=== PATIENT | female | born 1960 | race Caucasian/White ===

== ENCOUNTER 2020-07-23 06:46 | Outpatient (REF) | payer BC, SELFPAY ==
[2020-07-23 11:33] LABS: MANUAL DIFF FLAG NO
[2020-07-23 11:52] LABS: Basophils Percent Auto 0.8 % (0-2); Eosinophils Absolute Auto 0.3 X10*3/uL (0.0-0.4); Hematocrit 42.4 % (37-47); Hemoglobin 13.9 g/dl (12.0-16.0); Imm Gran Abs Auto 0.02 X10*3/uL (0.00-0.03); Imm Gran Pct Auto 0.4 % (0.0-0.4); Lymphocytes Absolute Auto 1.4 X10*3/uL (1.2-4.9); Lymphocytes Percent Auto 26.5 % (20-40); Mean Corpuscular HGB Conc 32.8 g/dl (31.0-35.0); Mean Corpuscular Hemoglobin 31.7 pg (27.0-33.0); Mean Corpuscular Volume 96.8 fL (80-98); Mean Platelet Volume 10.1 fL (9.4-12.3); Monocytes Absolute Auto 0.4 X10*3/uL (0.1-1.2); Monocytes Percent Auto 6.6 % (2-11); Neutrophils Absolute Auto 3.2 X10*3/uL (2.0-8.3); Neutrophils Percent Auto 59.7 % (45-73); Platelet Count 300 X10*3/uL (160-400); Red Blood Count 4.38 X10*6/uL (4.20-5.50); Red Cell Distribution Width 15.4 % (11.0-16.0); White Blood Count 5.3 X10*3/uL (4.8-10.8)
[2020-07-23 12:18] LABS: TSH reflex Free T4 3.82 uIU/mL (0.32-4.0)
[2020-07-23 12:21] LABS: Alanine Aminotransferase 11 U/L (0-31); Albumin Level 4.1 g/dL (3.5-5.0); Alkaline Phosphatase 80 U/L (39-117); Anion Gap 12 (12-20); Aspartate Amino Transferase 19 U/L (5-31); Bilirubin Direct 0.6 mg/dL (0.0-0.5); Bilirubin Total 1.8 mg/dL (0.0-1.0); Blood Urea Nitrogen 21 mg/dL (9-16); Calcium 9.7 mg/dL (8.4-10.2); Carbon Dioxide 31 mmol/L (22-29); Chloride 104 mmol/L (96-108); Estimated Glomerular Filt Rate 58; Glucose Random 89 mg/dL (60-115); Potassium 3.9 mmol/L (3.3-5.1); Sodium 143 mmol/L (135-145); Total Protein 7.1 g/dL (6.5-8.0)
[2020-07-23 12:36] LABS: Vitamin B12 < 146 pg/mL (200-900)
[2020-07-27 11:27] LABS: Vitamin D 25-OH, D2 <4 ng/mL; Vitamin D 25-OH, D3 13 ng/mL; Vitamin D 25-OH, Total 13 ng/mL (30-100)
== END 2020-07-23 06:47 | disposition home or self-care (01) ==
LOC: HO.HMGCLDS 06:46
PROVIDERS: PCP Internal Medicine; Visit Provider Internal Medicine
DX: G62.9 Polyneuropathy, unspecified (principal); I10 Essential (primary) hypertension; K21.9 Gastro-esophageal reflux disease without esophagitis; E03.8 Other specified hypothyroidism
CPT/HCPCS: 36415; 80048; 80076; 82306; 82607; 84443; 85025

== ENCOUNTER 2020-08-13 13:05 | Outpatient (REF) | payer BC, SELFPAY ==
--- NOTE | ~2020-08-13 | MM_ITS ---
EXAMINATION: MM DIAGNOSTIC DIGITAL BREAST TOMOSYNTHESIS, BILATERAL US DIAGNOSTIC ULTRASOUND BREAST, BILATERAL CLINICAL INFORMATION: 60-year-old with palpable fullness on clinical exam upper outer left breast. No prior breast imaging. Patient notes no palpable concern. No discharge. No known family history breast cancer. The lifetime risk of breast cancer based on the Tyrer-Cuzick Model is 8%. COMPARISON: None (current study represents initial baseline exam). TECHNIQUE: Digital breast tomosynthesis is performed in both the craniocaudal and mediolateral oblique views along with computer-aided detection (CAD). Synthesized 2D images are generated from the tomosynthesis. Additional views are obtained: Exaggerated right CC, left rolled CC x2, left ML. There are BB markers placed on the skin at site of bilateral moles (standard round mole markers were unavailable). Ultrasound left breast is targeted to the outer quadrants the area of clinical and mammographic interest. Ultrasound right breast is targeted to the 7:00 through 11:00 position. Both breasts are imaged using grayscale imaging and color Doppler without and with harmonics. Patient has no focal palpable concern to direct attention at time of ultrasound. FINDINGS: Mammography: There are scattered areas of fibroglandular density (ACR BI-RADS breast composition Category b). There are BB markers on the skin at site of residual dermal moles. There are no abnormal calcifications. The bilateral axilla and skin contours are unremarkable. The left breast has oval parenchymal asymmetry mid 2:30 o'clock position measuring approximately 3.3 x 2.3 x 1.9 cm. There is internal admixture of fatty and glandular attenuation. Parenchymal asymmetry medial to the asymmetry on CC view shows no persistence on the additional rolled and lateral projection. The remainder the left breast is unremarkable. The right breast has circumscribed nodule mid 11:00 position measuring 1.0 x 0.8 cm. The remainder the right breast is unremarkable. No architectural abnormality. Ultrasound: Targeted left breast ultrasound demonstrates oval circumscribed area of mixed hyperechoic and circumscribed hypoechoic foci 2:00 position 12 cm from nipple measuring 2.8 x 1.2 cm. No hyperemia. No increased or decreased through transmission of sound at real-time imaging. This corresponds to the finding on mammography. Primary differential considerations include focal fibrosis/fibrocystic changes, hamartoma, pseudoangiomatous stromal hyperplasia. Targeted ultrasound right breast demonstrates grouped microcysts 10:00 position 12 cm from nipple composition in area of 1.1 x 0.5 cm. There is no internal color flow. This most likely corresponds to finding on mammography. Preliminary results are discussed with the patient at time of visit. Patient has upcoming appointment with surgeon and was advised to keep appointment. MM/MM tomosynthesis diagnostic BI IMPRESSION: Left: Circumscribed oval parenchymal asymmetry mid 2:30 o'clock position 3.3 x 2.3 x 1.9 cm. Primary differential considerations include focal fibrosis/fibrocystic changes, hamartoma, pseudoangiomatous stromal hyperplasia. This would be amenable to ultrasound-guided core biopsy. If biopsy is not contemplated, then short interval six-month follow-up imaging recommended. Right: Benign-appearing nodule mid 11:00 position most likely benign grouped microcysts on targeted ultrasound. ASSESSMENT: BI-RADS 3: Probably Benign RECOMMENDATION: Surgical consult (appointment scheduled according to patient). Left breast lesion would be amenable to ultrasound-guided biopsy. If biopsy is not contemplated, then bilateral short interval 6 month follow up diagnostic mammography would be recommended. This patient's information was entered into a reminder system with a target due date for their next mammogram.
== END 2020-08-13 13:06 | disposition home or self-care (01) ==
LOC: HO.MAMMO 13:05
PROVIDERS: Visit Provider Internal Medicine
DX: N63.21 Unspecified lump in the left breast, upper outer quadrant (principal); N63.11 Unspecified lump in the right breast, upper outer quadrant
CPT/HCPCS: 76642; 77062; 77066

== ENCOUNTER → 2020-08-15 11:34 | Outpatient (BNVA) | payer BC, SELFPAY | PROVIDERS: PCP Internal Medicine; Referring Provider Internal Medicine; Visit Provider Surgery ==

== ENCOUNTER 2020-09-09 07:51 | Outpatient (REF) | payer BC, SELFPAY ==
--- NOTE | ~2020-09-09 | MM_ITS ---
EXAMINATION: ULTRASOUND GUIDED CORE BIOPSY BREAST, LEFT POST PROCEDURE DIGITAL MAMMOGRAM, LEFT CLINICAL INFORMATION: Palpable finding outer left breast with oval circumscribed parenchymal asymmetry on baseline diagnostic imaging. COMPARISON: Mammography and targeted breast ultrasound 08/13/2020. FINDINGS: Proper informed consent is obtained from the patient after discussion of the procedure, potential risks and complications, and alternatives. Patient was given an opportunity for questions. The patient appeared to understand. The patient consented to the procedure and signed the consent form. GUIDANCE: Ultrasound-guided; aseptic technique. LESION: Oval circumscribed area of mixed hyperechoic and hypoechoic foci 2:00 position measuring 2.8 x 1.2 cm. Primary differential considerations include focal fibrosis fibrocystic changes, hamartoma, pseudoangiomatous stromal hyperplasia. APPROACH: Oblique caudal cranial. ANESTHESIA: 15 mL 1% lidocaine. DERMATOTOMY: Single skin julio c dermatotomy performed. NEEDLE: 14-gauge Achieve core biopsy device with 13.5-gauge co-axial guide needle. CORES: 6. CLIP: HydroMARK; shape: open coil. POST PROCEDURE UNILATERAL DIGITAL MAMMOGRAM: The post biopsy mammogram is performed in separate room using separate digital mammography equipment from the biopsy procedure. CC and ML views are obtained. There are scattered areas of fibroglandular density (breast composition category: b). The clip marker is in position and corresponds to finding on recent baseline diagnostic exam. No gross hematoma. The patient tolerated the procedure well. No immediate complications. Home instructions reviewed with the patient. Final pathology results are pending. MM/MM diagnostic mammo unilat LT IMPRESSION: 1. Status post ultrasound-guided core biopsy left breast. 2. Clip placed: HydroMARK; shape: open coil. 3. Pathology pending. An addendum report will be issued.
== END 2020-09-09 07:52 | disposition home or self-care (01) ==
LOC: HO.MAMMO 07:51
PROVIDERS: Visit Provider Surgery
DX: R92.8 Other abnormal and inconclusive findings on diagnostic imaging of breast (principal)
CPT/HCPCS: 19083; 77065; 88305; A4648

== ENCOUNTER → 2020-09-12 09:05 | Outpatient (BNVA) | payer BC, SELFPAY | PROVIDERS: PCP Internal Medicine; Referring Provider Internal Medicine; Visit Provider Surgery ==

== ENCOUNTER 2021-02-10 13:10 | Outpatient (REF) | payer BC, SELFPAY ==
--- NOTE | ~2021-02-10 | MM_ITS ---
EXAMINATION: MM DIAGNOSTIC DIGITAL BREAST TOMOSYNTHESIS, BILATERAL CLINICAL INFORMATION: Due for yearly. Benign left ultrasound guided core biopsy 09/09/2020 (benign breast tissue with marked stromal fibrosis; no atypia or malignancy). Benign-appearing grouped microcysts mid 11:00 right breast. The lifetime risk of breast cancer based on the Tyrer-Cuzick Model is 8%. COMPARISON: Mammography: 09/09/2020, 08/13/2020 (diagnostic, baseline), bilateral targeted breast ultrasound 08/13/2020, ultrasound-guided core biopsy left breast 09/09/2020. TECHNIQUE: Digital breast tomosynthesis is performed in both the craniocaudal and mediolateral oblique views along with computer-aided detection (CAD). Synthesized 2D images are generated from the tomosynthesis. FINDINGS: There are scattered areas of fibroglandular density (ACR BI-RADS breast composition Category b). Parenchymal pattern is similar to the initial baseline exam. There is a biopsy clip marker overlying the oval parenchymal asymmetry upper outer left breast corresponding to the benign stromal fibrosis. There are bilateral low axillary tail nodes which are stable. The grouped microcysts mid 11:00 right breast are decreased. Neither breast shows interval mass or architectural abnormality or abnormal calcifications. No developing density. There is a dermal lesion overlying the posterior 5:00 left breast. Results are provided to the patient at time of visit by the technologist. MM/MM tomosynthesis diagnostic BI IMPRESSION: 1. No mammographic evidence of malignancy. 2. No significant changes. Small microcysts mid 11:00 right breast decreased. ASSESSMENT: BI-RADS 2: Benign RECOMMENDATION: Routine annual mammography screening. This patient's information was entered into a reminder system with a target due date for their next mammogram.
== END 2021-02-10 13:11 | disposition home or self-care (01) ==
LOC: HO.MAMMO 13:10
PROVIDERS: Visit Provider Internal Medicine
DX: R92.2 Inconclusive mammogram (principal)
CPT/HCPCS: 77062; 77066

== ENCOUNTER 2021-07-15 12:46 | Outpatient (REF) | payer BC, SELFPAY ==
[2021-07-15 13:50] LABS: Hemoglobin 13.2 g/dl (12.0-16.0)
[2021-07-15 14:03] LABS: Alanine Aminotransferase 10 U/L (0-31); Albumin Level 4.1 g/dL (3.5-5.0); Alkaline Phosphatase 81 U/L (39-117); Anion Gap 11 (12-20); Aspartate Amino Transferase 17 U/L (5-31); Bilirubin Total 0.9 mg/dL (0.0-1.0); Blood Urea Nitrogen 13 mg/dL (9-16); Calcium 9.7 mg/dL (8.4-10.2); Carbon Dioxide 28 mmol/L (22-29); Chloride 107 mmol/L (96-108); Estimated Glomerular Filt Rate 56; Glucose Random 92 mg/dL (60-115); Sodium 142 mmol/L (135-145); Total Protein 7.5 g/dL (6.5-8.0)
[2021-07-15 14:30] LABS: Vitamin B12 506 pg/mL (200-900)
[2021-07-21 14:57] LABS: Vitamin D 25-OH, D2 <4 ng/mL; Vitamin D 25-OH, D3 27 ng/mL; Vitamin D 25-OH, Total 27 ng/mL (30-100)
== END 2021-07-15 12:47 | disposition home or self-care (01) ==
LOC: HO.HMGCLDS 12:46
PROVIDERS: PCP Internal Medicine; Visit Provider Internal Medicine
DX: E53.8 Deficiency of other specified B group vitamins (principal); E55.9 Vitamin D deficiency, unspecified; I10 Essential (primary) hypertension; R79.89 Other specified abnormal findings of blood chemistry
CPT/HCPCS: 36415; 80053; 82306; 82607; 85018

== ENCOUNTER 2022-04-07 07:59 | Outpatient (REF) | payer BC, SELFPAY ==
--- NOTE | ~2022-04-07 | MM_ITS ---
EXAMINATION: MM SCREENING DIGITAL BREAST TOMOSYNTHESIS, BILATERAL CLINICAL INFORMATION: Screening. Asymptomatic. Left ultrasound guided biopsy 09/09/2020 (benign breast tissue with marked stromal fibrosis. No atypia or malignancy). Due for yearly. The lifetime risk of breast cancer based on the Tyrer-Cuzick Model is 7%. COMPARISON: Mammography: 02/10/2021, 09/09/2020, 08/13/2020 (baseline diagnostic); bilateral breast ultrasound 08/13/2020, ultrasound-guided biopsy left breast 09/09/2020. TECHNIQUE: Digital breast tomosynthesis is performed in both the craniocaudal and mediolateral oblique views along with computer-aided detection (CAD). Synthesized 2D images are generated from the tomosynthesis. FINDINGS: There are scattered areas of fibroglandular density (ACR BI-RADS breast composition Category b). There are no significant changes from prior studies. Parenchymal asymmetry posterior outer left breast is similar to prior studies. There is overlying biopsy clip marker. Scattered bilateral smooth nodularity is stable. There is no significant mass or developing density or architectural abnormality. No abnormal calcifications. The axilla and skin contours are unremarkable. MM/MM tomosynthesis screening BI IMPRESSION: No mammographic evidence of malignancy. ASSESSMENT: BI-RADS 2: Benign RECOMMENDATION: Routine annual mammography screening. This patient's information was entered into a reminder system with a target due date for their next mammogram.
== END 2022-04-07 08:00 | disposition home or self-care (01) ==
LOC: HO.MAMMO 07:59
PROVIDERS: PCP Internal Medicine; Visit Provider Internal Medicine
DX: Z12.31 Encounter for screening mammogram for malignant neoplasm of breast (principal)
CPT/HCPCS: 77063; 77067

== ENCOUNTER 2022-07-02 09:21 | Outpatient (REF) | payer BC, SELFPAY ==
[2022-07-02 11:22] LABS: MANUAL DIFF FLAG NO
[2022-07-02 11:35] LABS: Basophils Absolute Auto 0.1 X10*3/uL (0.0-0.2); Eosinophils Absolute Auto 0.3 X10*3/uL (0.0-0.4); Eosinophils Percent Auto 5.4 % (0-4); Hematocrit 45.3 % (37.0-47.0); Hemoglobin 14.9 g/dl (12.0-16.0); Imm Gran Abs Auto 0.02 X10*3/uL (0.00-0.03); Imm Gran Pct Auto 0.4 % (0.0-0.4); Lymphocytes Absolute Auto 1.4 X10*3/uL (1.2-4.9); Lymphocytes Percent Auto 27.4 % (20-40); Mean Corpuscular HGB Conc 32.9 g/dl (31.0-35.0); Mean Corpuscular Hemoglobin 34.8 pg (27.0-33.0); Mean Corpuscular Volume 105.8 fL (80.0-98.0); Mean Platelet Volume 9.4 fL (9.4-12.3); Monocytes Absolute Auto 0.3 X10*3/uL (0.1-1.2); Monocytes Percent Auto 5.4 % (2-11); Neutrophils Absolute Auto 3.1 x10*3/uL (2.0-8.3); Neutrophils Percent Auto 60.4 % (45-73); Platelet Count 234 X10*3/uL (160-400); Red Blood Count 4.28 X10*6/uL (4.20-5.50); Red Cell Distribution Width 14.6 % (11.0-16.0); White Blood Count 5.1 X10*3/uL (4.8-10.8)
[2022-07-02 12:17] LABS: Alanine Aminotransferase 8 U/L (0-31); Albumin Level 3.9 g/dL (3.5-5.0); Alkaline Phosphatase 74 U/L (39-117); Anion Gap 11 (12-20); Aspartate Amino Transferase 17 U/L (5-31); Bilirubin Total 1.3 mg/dL (0.0-1.0); Blood Urea Nitrogen 12 mg/dL (9-16); Calcium 9.4 mg/dL (8.4-10.2); Carbon Dioxide 27 mmol/L (22-29); Chloride 107 mmol/L (96-108); Estimated Glomerular Filt Rate > 60; Glucose Random 84 mg/dL (60-115); Potassium 4.3 mmol/L (3.3-5.1); Sodium 141 mmol/L (135-145)
[2022-07-02 12:24] LABS: TSH reflex Free T4 53.68 uIU/mL (0.32-4.0); Vitamin B12 628 pg/mL (200-900)
[2022-07-02 14:32] LABS: Free T4 (Free Thyroxine) 0.45 ng/dL (0.71-1.85)
[2022-07-04 03:29] LABS: LDL Cholesterol Direct 122 mg/dL (<100)
[2022-07-09 13:03] LABS: Vitamin D 25-OH, D2 <4 ng/mL; Vitamin D 25-OH, D3 25 ng/mL; Vitamin D 25-OH, Total 25 ng/mL (30-100)
== END 2022-07-02 09:22 | disposition home or self-care (01) ==
LOC: HO.HMGCLDS 09:21
PROVIDERS: PCP Internal Medicine; Visit Provider Internal Medicine
DX: E03.8 Other specified hypothyroidism (principal); E53.8 Deficiency of other specified B group vitamins; E55.9 Vitamin D deficiency, unspecified; I10 Essential (primary) hypertension; K21.9 Gastro-esophageal reflux disease without esophagitis; E66.01 Morbid (severe) obesity due to excess calories; R79.89 Other specified abnormal findings of blood chemistry
CPT/HCPCS: 36415; 80053; 82306; 82607; 83721; 84439; 84443; 85025

== ENCOUNTER 2022-08-11 07:43 | Outpatient (REF) | payer BC, SELFPAY ==
[2022-08-11 12:10] LABS: Alanine Aminotransferase 9 U/L (0-31); Alkaline Phosphatase 81 U/L (39-117); Anion Gap 14 (12-20); Aspartate Amino Transferase 20 U/L (5-31); Bilirubin Total 1.5 mg/dL (0.0-1.0); Blood Urea Nitrogen 13 mg/dL (9-16); Calcium 9.8 mg/dL (8.4-10.2); Carbon Dioxide 27 mmol/L (22-29); Chloride 105 mmol/L (96-108); Estimated Glomerular Filt Rate > 60; Glucose Random 96 mg/dL (60-115); Potassium 3.7 mmol/L (3.3-5.1); Sodium 142 mmol/L (135-145); Total Protein 7.7 g/dL (6.5-8.0)
[2022-08-11 12:18] LABS: Vitamin B12 888 pg/mL (200-900)
[2022-08-11 12:27] LABS: TSH reflex Free T4 0.85 uIU/mL (0.32-4.0)
== END 2022-08-11 07:44 | disposition home or self-care (01) ==
LOC: HO.HMGCLDS 07:43
PROVIDERS: PCP Internal Medicine; Visit Provider Internal Medicine
DX: E03.8 Other specified hypothyroidism (principal); E53.8 Deficiency of other specified B group vitamins; E55.9 Vitamin D deficiency, unspecified; I10 Essential (primary) hypertension; K21.9 Gastro-esophageal reflux disease without esophagitis
CPT/HCPCS: 36415; 80053; 82607; 84443

== ENCOUNTER 2022-10-27 11:18 | Outpatient (AMB) | payer BC, SELFPAY ==
[2022-10-27 11:18] VITALS: BP 102/56; PULSE 57; O2SAT 96; BMI 45.4
--- NOTE | 2022-10-27 11:18 | MHC.PC.OV ---
Vital Signs 10/27/22 11:18 Height 5 ft 2 in Weight 248 lb 8 oz BMI 45.4 BP 102/56 L Blood Pressure Location Rt brachial Position Sitting Pulse 57 Pulse Source Pulse Oximeter Pulse Oximetry (%) 96 Oxygen Delivery Method Room Air Intake Visit Reasons: 4 Month follow up Allergies No Known Allergies Allergy (Verified 10/27/22 11:19) Medication List - Last Reconciled 10/27/22 by Isabella Blount MD atenolol 50 mg PO DAILY 90 days cholecalciferol (vitamin D3) 25 mcg PO DAILY hydrochlorothiazide 12.5 mg PO DAILY 90 days levothyroxine 100 mcg PO DAILY 90 days pantoprazole 40 mg PO DAILY 90 days Tobacco use date assessed: 10/27/22 Fall risk assessment: No Falls in past year Last assessed Fall Risk: 10/27/22 Dental Screening Dental Screen Date: 10/27/22 Did you have a dental visit in the last 12 months?: No Did you have a dental problem in the last 6 months where you did not have access to dental care?: No Was dental information given to patient?: No HPI 4 Month follow up HPI Details Patient is 62-year-old female , this is a follow-up appointment Patient in her usual state of health and offer no new complaints Patient is on atenolol 50 mg and hydrochlorothiazide 12.5 mg for blood pressure, blood pressure is stable patient is tolerating medication Hypothyroidism:? Patient is on levothyroxine 100 mcg.? Last TSH was within normal limit Dyspepsia stable with pantoprazole 40 mg daily She is also on B12 and vitamin-D supplement.? BMI is above 40 patient need to lose weight, patient is trying to lose weight Follow-up in 4 months labs are needed before visit [facility] Medical History Chronic GERD COVID-19 Hypertension, essential Morbid obesity due to excess calories Polyneuropathy Family History Father Hypertension Mother No problems noted. Brother Hypertension Social History Housing: House Alcohol intake: current Alcohol intake frequency: holidays/special occasions only Patient Tobacco Use Status: Never used Tobacco e-Cigarette/Vaping Use: Never Used Current occupational status: employed Cognitive needs: No Hearing needs: No Vision needs: Yes Female Reproductive History Menstrual Age of Menarche: 9 Questionnaire PHQ-9 Over the last 2 weeks, how often have you been bothered by any of the following problems? 1. Little interest or pleasure in doing things: not at all 2. Feeling down, depressed, or hopeless: not at all 3. Trouble falling or staying asleep, or sleeping too much: not at all 4. Feeling tired or having little energy: not at all 5. Poor appetite or overeating: not at all 6. Feeling bad about yourself - or that you are a failure or have let yourself or your family down: not at all 7. Trouble concentrating on things, such as reading the newspaper or watching television: not at all 8. Moving or speaking so slowly that other people could have noticed. Or the opposite - being so fidgety or restless that you have been moving around a lot more than usual: not at all 9. Thoughts that you would be better off or of hurting yourself in some way: not at all Total score: 0 Depression Screening Interpretation: Negative 85071 - PHQ-9 Billing: Yes Source: Developed by Drs. Chance Ruiz, Tere Soria, Jeevan Márquez and colleagues, with an educational sami from [employer]. Thrive Questionnaire Date Thrive assessed: 10/27/22 I am a: Patient What is your living situation today?: I have a steady place to live Within the past 12 months, did the food you bought not last and you didn't have the money to get more?: Never true Within the past 12 months, did you worry whether your food would run out before you got money to buy more?: Never true Do you have trouble paying for medicines?: No Do you have trouble getting transportation to medical appointments?: No Do you have trouble paying your heating and electricity bill?: No Do you have trouble taking care of your child, family member or friend?: No Do you have trouble with day-to-day activities such as bathing, preparing meals, shopping, managing finances, etc.?: No Are you currently unemployed and looking for a job?: No Are you interested in more education?: No AUDIT C Alcohol Use Questionnaire (AUDIT-C) 1. How often do you have a drink containing alcohol?: Never 3. How often do you have six or more drinks on one occasion?: Never Total Score: 0 Score Reviewed/Action Taken: Yes MOMO-7 AMB Questionnaire MOMO-7 Date MOMO - 7 assessed: 10/27/22 Feeling nervous, anxious, or on edge: 0 = Not at all Not being able to stop or control worryin = Not at all Worrying too much about different things: 0 = Not at all Trouble relaxin = Not at all Being so restless that it is hard to sit still: 0 = Not at all Becoming easily annoyed or irritable: 0 = Not at all Feeling afraid as if something awful might happen: 0 = Not at all Total MOMO-7 score (0-4 normal; 5-9 mild; 10-14 moderate; 15-21 severe): 0 Source: Developed by Drs. Chance Ruiz, Tere Soria, Jeevan Márquez and colleagues, with an educational sami from [employer]. MOMO-7 Assessment Billing MOMO-7 Assessment Tool: MOMO-7 Assessment 18084 Review of Systems Const Denies chills and Denies fever(s) ENT Denies epistaxis and Denies nasal discharge Card Denies chest pain Resp Denies chest congestion, Denies cough and Denies hemoptysis GI Denies diarrhea and Denies nausea Skin/Breast Denies rash Neuro Reports no additional complaints Psych Reports no additional complaints Endo Reports no additional complaints Physical exam (Primary Care) Vital Signs: Last Vital Signs Pulse 57 10/27/22 11:18 BP 102/56 L 10/27/22 11:18 Pulse Ox 96 10/27/22 11:18 Oxygen Delivery Method Room Air 10/27/22 11:18 BMI result Body Mass Index 45.4 Tobacco/Smoking Status: Tobacco use Status Tobacco use date assessed 10/27/22 10/27/22 11:20 Patient Tobacco Use Status Never used Tobacco 10/27/22 11:20 e-Cigarette/Vaping Use Never Used 10/27/22 11:20 PHQ-9: PHQ-9 Score PHQ-9: Total score 0 10/27/22 11:49 Depression Screening Interpretation: Negative Thrive Assessment: Date of Thrive Assessment Date Thrive assessed 10/27/22 10/27/22 11:49 Const General: cooperative, comfortable and no acute distress Orientation/consciousness: patient oriented x3 HENMT Head: Yes normocephalic Eyes General: appearance normal, both eyes and all related structures Neck Neck: Yes supple Resp Effort & Inspection: normal respiratory effort, no cough and no stridor Cardio Rhythm: regular rhythm Heart sounds: S1 normal heart sound present and S2 normal heart sound present Skin General skin exam: turgor normal Neuro General: patient oriented x3, tone normal and moves all extremities Extrem Right lower extremity: no edema Left lower extremity: no edema Assessment and Plan Assessment & Plan (1) Hypertension, essential: Code(s): I10 - Essential (primary) hypertension (2) Morbid obesity due to excess calories: Code(s): E66.01 - Morbid (severe) obesity due to excess calories (3) LFT elevation: Code(s): R79.89 - Other specified abnormal findings of blood chemistry (4) Other specified hypothyroidism: Code(s): E03.8 - Other specified hypothyroidism (5) Polyneuropathy: Code(s): G62.9 - Polyneuropathy, unspecified (6) Chronic GERD: Code(s): K21.9 - Gastro-esophageal reflux disease without esophagitis (7) Vitamin D deficiency: Code(s): E55.9 - Vitamin D deficiency, unspecified Plan Patient is 62-year-old female , this is a follow-up appointment Patient in her usual state of health and offer no new complaints Patient is on atenolol 50 mg and hydrochlorothiazide 12.5 mg for blood pressure, blood pressure is stable patient is tolerating medication Hypothyroidism:? Patient is on levothyroxine 100 mcg.? Last TSH was within normal limit Dyspepsia stable with pantoprazole 40 mg daily She is also on B12 and vitamin-D supplement.? BMI is above 40 patient need to lose weight, patient is trying to lose weight Follow-up in 4 months labs are needed before visit Orders: Orders Comprehensive Met. Panel 3 Months E03.8 - Other specified hypothyroidism, E66.01 - Morbid (severe) obesity due to excess calories, G62.9 - Polyneuropathy, unspecified, I10 - Essential (primary) hypertension, K21.9 - Gastro-esophageal reflux disease without esophagitis, R79.89 - Other specified abnormal findings of blood chemistry TSH reflex Free T4 3 Months E03.8 - Other specified hypothyroidism, E66.01 - Morbid (severe) obesity due to excess calories, G62.9 - Polyneuropathy, unspecified, I10 - Essential (primary) hypertension, K21.9 - Gastro-esophageal reflux disease without esophagitis, R79.89 - Other specified abnormal findings of blood chemistry Complete Blood Count Auto Diff 3 Months E03.8 - Other specified hypothyroidism, E66.01 - Morbid (severe) obesity due to excess calories, G62.9 - Polyneuropathy, unspecified, I10 - Essential (primary) hypertension, K21.9 - Gastro-esophageal reflux disease without esophagitis, R79.89 - Other specified abnormal findings of blood chemistry Coding Level of Care Code Est Pt Level 4 (28866) Diagnoses Hypertension, essential I10 Morbid obesity due to excess calories E66.01 LFT elevation R79.89 Other specified hypothyroidism E03.8 Polyneuropathy G62.9 Chronic GERD K21.9 Vitamin D deficiency E55.9 Additional Codes MOMO-7 Assessment Billing - MOMO-7 Assessment Tool: MOMO-7 Assessment [id number] ([id number])
== END 2022-10-27 11:49 | disposition home or self-care (01) ==
PROVIDERS: Visit Provider Internal Medicine
DX: I10 Essential (primary) hypertension (principal); E66.01 Morbid (severe) obesity due to excess calories; E03.8 Other specified hypothyroidism; K21.9 Gastro-esophageal reflux disease without esophagitis; E55.9 Vitamin D deficiency, unspecified; Z68.42 Body mass index [BMI] 45.0-49.9, adult; R79.89 Other specified abnormal findings of blood chemistry; G62.9 Polyneuropathy, unspecified
CPT/HCPCS: 99214

== ENCOUNTER 2023-04-06 09:44 | Outpatient (AMB) | payer BC, SELFPAY ==
[2023-04-06 09:57] VITALS: BP 118/56; PULSE 80; O2SAT 95; BMI 45.0
--- NOTE | 2023-04-06 09:57 | MHC.PC.OV ---
Vital Signs 04/06/23 09:57 Height 5 ft 2 in Weight 246 lb 4 oz BMI 45.0 BP 118/56 L Blood Pressure Location Lt brachial Position Sitting Pulse 80 Pulse Source Pulse Oximeter Pulse Oximetry (%) 95 Oxygen Delivery Method Room Air Intake Visit Reasons: 4 month fu Allergies No Known Allergies Allergy (Verified 04/06/23 09:57) Medication List - Last Reconciled 04/06/23 by Isabella Blount MD atenolol 50 mg PO DAILY 90 days cholecalciferol (vitamin D3) 25 mcg PO DAILY hydrochlorothiazide 12.5 mg PO DAILY 90 days levothyroxine 100 mcg PO DAILY 90 days pantoprazole 40 mg PO DAILY 90 days Tobacco use date assessed: 04/06/23 Fall risk assessment: No Falls in past year Last assessed Fall Risk: 04/06/23 Dental Screening Dental Screen Date: 04/06/23 Did you have a dental visit in the last 12 months?: Yes Did you have a dental problem in the last 6 months where you did not have access to dental care?: No Was dental information given to patient?: Patient has dentist HPI 4 month fu HPI Details Patient is 62-year-old female , this is a follow-up appointment Labs were supposed to be done before this visit, patient forgot, she will done today Hypertension: Patient is on atenolol 50 mg and hydrochlorothiazide 12.5 mg for blood pressure, blood pressure is stable patient is tolerating medication Hypothyroidism:? Patient is on levothyroxine 100 mcg.? Dyspepsia stable with pantoprazole 40 mg daily She is also on B12 and vitamin-D supplement.? BMI is above 40 patient need to lose weight, patient is trying to lose weight Follow-up in 4 months [facility] Medical History Morbid obesity due to excess calories Polyneuropathy Hypertension, essential Chronic GERD COVID-19 Family History Father Hypertension Mother No problems noted. Brother Hypertension Social History Housing: House Alcohol intake: current Alcohol intake frequency: holidays/special occasions only Patient Tobacco Use Status: Never used Tobacco e-Cigarette/Vaping Use: Never Used Current occupational status: employed Cognitive needs: No Hearing needs: No Vision needs: Yes Female Reproductive History Menstrual Age of Menarche: 9 Questionnaire Thrive Questionnaire Date Thrive assessed: 10/27/22 MOMO-7 AMB Questionnaire MOMO-7 Date MOMO - 7 assessed: 10/27/22 Source: Developed by Drs. Chance Ruiz, Tere Soria, Jeevan Márquez and colleagues, with an educational sami from [employer]. Review of Systems Const Denies chills and Denies fever(s) ENT Denies epistaxis and Denies nasal discharge Card Denies chest pain Resp Denies chest congestion, Denies cough and Denies hemoptysis GI Denies diarrhea and Denies nausea Skin/Breast Denies rash Neuro Reports no additional complaints Psych Reports no additional complaints Endo Reports no additional complaints Physical exam (Primary Care) Vital Signs: Last Vital Signs Pulse 80 04/06/23 09:57 BP 118/56 L 04/06/23 09:57 Pulse Ox 95 04/06/23 09:57 Oxygen Delivery Method Room Air 04/06/23 09:57 BMI result Body Mass Index 45.0 Tobacco/Smoking Status: Tobacco use Status Tobacco use date assessed 04/06/23 04/06/23 09:59 Patient Tobacco Use Status Never used Tobacco 04/06/23 09:59 e-Cigarette/Vaping Use Never Used 04/06/23 09:59 Thrive Assessment: Date of Thrive Assessment Date Thrive assessed 10/27/22 04/06/23 09:59 Const General: cooperative, comfortable and no acute distress Orientation/consciousness: patient oriented x3 HENMT Head: Yes normocephalic Eyes General: appearance normal, both eyes and all related structures Neck Neck: Yes supple Resp Effort & Inspection: normal respiratory effort, no cough and no stridor Cardio Rhythm: regular rhythm Heart sounds: S1 normal heart sound present and S2 normal heart sound present Skin General skin exam: turgor normal Neuro General: patient oriented x3, tone normal and moves all extremities Extrem Right lower extremity: no edema Left lower extremity: no edema Assessment and Plan Assessment & Plan (1) Hypertension, essential: Code(s): I10 - Essential (primary) hypertension (2) Morbid obesity due to excess calories: Code(s): E66.01 - Morbid (severe) obesity due to excess calories (3) LFT elevation: Code(s): R79.89 - Other specified abnormal findings of blood chemistry (4) Other specified hypothyroidism: Code(s): E03.8 - Other specified hypothyroidism (5) Polyneuropathy: Code(s): G62.9 - Polyneuropathy, unspecified (6) Chronic GERD: Code(s): K21.9 - Gastro-esophageal reflux disease without esophagitis (7) Vitamin D deficiency: Code(s): E55.9 - Vitamin D deficiency, unspecified Plan Patient is 62-year-old female , this is a follow-up appointment Labs were supposed to be done before this visit, patient forgot, she will done today Hypertension: Patient is on atenolol 50 mg and hydrochlorothiazide 12.5 mg for blood pressure, blood pressure is stable patient is tolerating medication Hypothyroidism:? Patient is on levothyroxine 100 mcg.? Dyspepsia stable with pantoprazole 40 mg daily She is also on B12 and vitamin-D supplement.? BMI is above 40 patient need to lose weight, patient is trying to lose weight Follow-up in 4 months Medications: Refilled atenolol One tab by mouth daily 50 mg PO DAILY 90 tabs 1RF 90 days hydrochlorothiazide 12.5 mg PO DAILY 90 caps 1RF 90 days pantoprazole 40 mg PO DAILY 90 tabs 1RF 90 days K21.9 - Gastro-esophageal reflux disease without esophagitis levothyroxine 100 mcg PO DAILY 90 tabs 1RF 90 days E03.8 - Other specified hypothyroidism Coding Level of Care Code Est Pt Level 3 (60567) Diagnoses Hypertension, essential I10 Morbid obesity due to excess calories E66.01 LFT elevation R79.89 Other specified hypothyroidism E03.8 Polyneuropathy G62.9 Chronic GERD K21.9 Vitamin D deficiency E55.9
== END 2023-04-06 12:17 | disposition home or self-care (01) ==
PROVIDERS: PCP Internal Medicine; Visit Provider Internal Medicine
DX: I10 Essential (primary) hypertension (principal); E66.01 Morbid (severe) obesity due to excess calories; Z68.42 Body mass index [BMI] 45.0-49.9, adult; R79.89 Other specified abnormal findings of blood chemistry; G62.9 Polyneuropathy, unspecified; E03.8 Other specified hypothyroidism; K21.9 Gastro-esophageal reflux disease without esophagitis; E55.9 Vitamin D deficiency, unspecified
CPT/HCPCS: 99213

== ENCOUNTER 2023-04-06 10:18 | Outpatient (REF) | payer BC, SELFPAY ==
[2023-04-06 13:21] LABS: MANUAL DIFF FLAG NO
[2023-04-06 13:28] LABS: Basophils Percent Auto 0.7 % (0-2); Eosinophils Absolute Auto 0.3 X10*3/uL (0.0-0.4); Hematocrit 44.7 % (37.0-47.0); Hemoglobin 15.1 g/dl (12.0-16.0); Imm Gran Abs Auto 0.02 X10*3/uL (0.00-0.03); Imm Gran Pct Auto 0.3 % (0.0-0.4); Lymphocytes Absolute Auto 1.4 X10*3/uL (1.2-4.9); Lymphocytes Percent Auto 23.4 % (20-40); Mean Corpuscular HGB Conc 33.8 g/dl (31.0-35.0); Mean Corpuscular Hemoglobin 34.4 pg (27.0-33.0); Mean Corpuscular Volume 101.8 fL (80.0-98.0); Mean Platelet Volume 9.7 fL (9.4-12.3); Monocytes Absolute Auto 0.4 X10*3/uL (0.1-1.2); Monocytes Percent Auto 7.4 % (2-11); Neutrophils Absolute Auto 3.7 x10*3/uL (2.0-8.3); Neutrophils Percent Auto 63.2 % (45-73); Platelet Count 260 X10*3/uL (160-400); Red Blood Count 4.39 X10*6/uL (4.20-5.50); Red Cell Distribution Width 12.6 % (11.0-16.0); White Blood Count 5.8 X10*3/uL (4.8-10.8)
[2023-04-06 13:44] LABS: Alanine Aminotransferase 11 U/L (0-31); Albumin Level 3.8 g/dL (3.5-5.0); Alkaline Phosphatase 92 U/L (39-117); Anion Gap 9 (12-20); Aspartate Amino Transferase 19 U/L (5-31); Bilirubin Total 1.1 mg/dL (0.0-1.0); Blood Urea Nitrogen 17 mg/dL (9-16); Calcium 9.6 mg/dL (8.4-10.2); Carbon Dioxide 30 mmol/L (22-29); Chloride 104 mmol/L (96-108); Estimated Glomerular Filt Rate 59; Glucose Random 96 mg/dL (60-115); Potassium 3.8 mmol/L (3.3-5.1); Sodium 139 mmol/L (135-145); Total Protein 7.3 g/dL (6.5-8.0)
[2023-04-06 14:01] LABS: TSH reflex Free T4 0.42 uIU/mL (0.32-4.0)
== END 2023-04-06 10:19 | disposition home or self-care (01) ==
LOC: HO.HMGCLDS 10:18
PROVIDERS: PCP Internal Medicine; Visit Provider Internal Medicine
DX: I10 Essential (primary) hypertension (principal); E66.01 Morbid (severe) obesity due to excess calories; R79.89 Other specified abnormal findings of blood chemistry; E03.8 Other specified hypothyroidism; G62.9 Polyneuropathy, unspecified; K21.9 Gastro-esophageal reflux disease without esophagitis
CPT/HCPCS: 36415; 80053; 84443; 85025

== ENCOUNTER 2023-07-26 08:29 | Outpatient (REF) | payer BC, SELFPAY ==
--- NOTE | ~2023-07-26 | MM_ITS ---
EXAMINATION: MM SCREENING DIGITAL BREAST TOMOSYNTHESIS, BILATERAL CLINICAL INFORMATION: Screening. Asymptomatic. COMPARISON: Mammography: This study is compared with prior exams dating back to 2020. TECHNIQUE: Digital breast tomosynthesis is performed in both the craniocaudal and mediolateral oblique views along with computer-aided detection (CAD). Synthesized 2D images are generated from the tomosynthesis. FINDINGS: There are scattered areas of fibroglandular density (ACR BI-RADS breast composition Category b). There are no significant masses, abnormal calcifications, or other abnormalities. There is a biopsy tissue marker in the upper outer quadrant of the left breast which is associated with a benign focal asymmetry. MM/MM tomosynthesis screening BI IMPRESSION: No mammographic evidence of malignancy. ASSESSMENT: BI-RADS BI-RADS 2 - Benign Findings RECOMMENDATION: Routine annual mammography screening. 1 year F/U This examination should not preclude the clinical evaluation of a suspicious palpable abnormality. This patient's information was entered into a reminder system with a target due date for their next mammogram.
== END 2023-07-26 08:30 | disposition home or self-care (01) ==
LOC: HO.MAMMO 08:29
PROVIDERS: PCP Internal Medicine; Visit Provider Internal Medicine
DX: Z12.31 Encounter for screening mammogram for malignant neoplasm of breast (principal)
CPT/HCPCS: 77063; 77067

== ENCOUNTER → 2023-07-26 08:45 | Outpatient (BNV) | payer BC, SELFPAY | PROVIDERS: PCP Internal Medicine; Visit Provider Radiology Diagnostic Radiology | DX: Z12.31 Encounter for screening mammogram for malignant neoplasm of breast (principal) | CPT/HCPCS: 77063; 77067 ==

== ENCOUNTER 2023-08-10 08:40 | Outpatient (AMB) | payer BC, SELFPAY ==
--- NOTE | 2023-08-10 08:47 | A.OFFPC_ITS ---
Vital Signs 08/10/23 08:49 Height 5 ft 2 in Weight 243 lb BMI 44.4 BP 118/78 Blood Pressure Location Rt radial Position Sitting Pulse 60 Pulse Source Pulse Oximeter Pulse Oximetry (%) 96 Oxygen Delivery Method Room Air Intake Visit Reasons: Annual PE Allergies No Known Allergies Allergy (Verified 08/10/23 08:47) Medication List - Last Reconciled 08/10/23 by Isabella Blount MD atenolol 50 mg PO DAILY 90 days cholecalciferol (vitamin D3) 25 mcg PO DAILY hydrochlorothiazide 12.5 mg PO DAILY 90 days levothyroxine 100 mcg PO DAILY 90 days pantoprazole 40 mg PO DAILY 90 days Tobacco use date assessed: 08/10/23 Fall risk assessment: No Falls in past year Dental Screening Dental Screen Date: 08/10/23 Did you have a dental visit in the last 12 months?: Yes Did you have a dental problem in the last 6 months where you did not have access to dental care?: No Was dental information given to patient?: Patient has dentist HPI Annual PE HPI Details Patient is 63-year-old female came in today for physical examination Mammogram is up-to-date Patient has appointment in October with OBGYN She continued to declined to have colonoscopy, patient says maybe next year Blood pressure is stable Labs are due order placed Medication list reviewed Patient offer no new complaints today. [facility] Medical History Morbid obesity due to excess calories Polyneuropathy Hypertension, essential Chronic GERD COVID-19 Surgical History No pertinent past surgical history Family History Father Hypertension Mother No problems noted. Brother Hypertension Social History Housing: House Alcohol intake: current Alcohol intake frequency: holidays/special occasions only Patient Tobacco Use Status: Never used Tobacco e-Cigarette/Vaping Use: Never Used service: No Current occupational status: employed Cognitive needs: No Hearing needs: No Vision needs: Yes Female Reproductive History Menstrual Age of Menarche: 9 Questionnaire PHQ-9 Over the last 2 weeks, how often have you been bothered by any of the following problems? 1. Little interest or pleasure in doing things: not at all 2. Feeling down, depressed, or hopeless: not at all 3. Trouble falling or staying asleep, or sleeping too much: not at all 4. Feeling tired or having little energy: not at all 5. Poor appetite or overeating: not at all 6. Feeling bad about yourself - or that you are a failure or have let yourself or your family down: not at all 7. Trouble concentrating on things, such as reading the newspaper or watching television: not at all 8. Moving or speaking so slowly that other people could have noticed. Or the opposite - being so fidgety or restless that you have been moving around a lot more than usual: not at all 9. Thoughts that you would be better off or of hurting yourself in some way: not at all Total score: 0 Depression Screening Interpretation: Negative Depression Screening Done: Yes 49747 - PHQ-9 Billing: Yes Source: Developed by Drs. Chance Ruiz, Tere Soria, Jeevan Márquez and colleagues, with an educational sami from [employer]. Thrive Questionnaire Date Thrive assessed: 08/10/23 I am a: Patient What is your living situation today?: I have a steady place to live Within the past 12 months, did the food you bought not last and you didn't have the money to get more?: Never true Within the past 12 months, did you worry whether your food would run out before you got money to buy more?: Never true Do you have trouble paying for medicines?: No Do you have trouble getting transportation to medical appointments?: No Do you have trouble paying your heating and electricity bill?: No Do you have trouble taking care of your child, family member or friend?: No Do you have trouble with day-to-day activities such as bathing, preparing meals, shopping, managing finances, etc.?: No Are you currently unemployed and looking for a job?: No Are you interested in more education?: No Please select the resources that you would like help with: None Currently or been in a relationship where the following occur: I choose not to answer this question THRIVE Score: 0 AUDIT C Alcohol Use Questionnaire (AUDIT-C) 1. How often do you have a drink containing alcohol?: Never 3. How often do you have six or more drinks on one occasion?: Never Total Score: 0 Score Reviewed/Action Taken: Yes MOMO-7 AMB Questionnaire MOMO-7 Date MOMO - 7 assessed: 08/10/23 Feeling nervous, anxious, or on edge: 0 = Not at all Not being able to stop or control worryin = Not at all Worrying too much about different things: 0 = Not at all Trouble relaxin = Not at all Being so restless that it is hard to sit still: 0 = Not at all Becoming easily annoyed or irritable: 0 = Not at all Feeling afraid as if something awful might happen: 0 = Not at all Total MOMO-7 score (0-4 normal; 5-9 mild; 10-14 moderate; 15-21 severe): 0 Source: Developed by Drs. Chance Ruiz, Tere Soria, Jeevan Márquez and colleagues, with an educational sami from [employer]. MOMO-7 Assessment Billing MOMO-7 Assessment Tool: MOMO-7 Assessment 69847 Review of Systems Const Denies chills, Denies fever(s) and Denies headache(s) Eyes Denies blurry vision ENT Denies headache(s), Denies nasal discharge, Denies nasal obstruction, Denies lissett nophagia and Denies sinus pain Card Denies chest pain at rest and Denies chest pain with activity Resp Denies cough and Denies hemoptysis GI Denies diarrhea, Denies odynophagia, Denies vomiting and Denies hematemesis Reports as per HPI Musc Denies abnormal gait Skin/Breast Reports as per HPI Neuro Denies Neuro-related abnormal movements, Denies Abnormal speech present, Denies abnormal gait, Denies headache(s) and Denies Sensory deficit (Neuro) Psych Denies mood swings and Denies paranoia Endo Reports as per HPI Moo/Lymph Reports as per HPI Aller/Immun Reports as per HPI Physical exam (Primary Care) Vital Signs: Last Vital Signs Pulse 60 08/10/23 08:49 BP 118/78 08/10/23 08:49 Pulse Ox 96 08/10/23 08:49 Oxygen Delivery Method Room Air 08/10/23 08:49 BMI result Body Mass Index 44.4 Tobacco/Smoking Status: Tobacco use Status Tobacco use date assessed 08/10/23 08/10/23 08:53 Patient Tobacco Use Status Never used Tobacco 08/10/23 08:53 e-Cigarette/Vaping Use Never Used 08/10/23 08:53 PHQ-9: PHQ-9 Score PHQ-9: Total score 0 08/10/23 09:13 Depression Screening Interpretation: Negative Thrive Assessment: Date of Thrive Assessment Date Thrive assessed 08/10/23 08/10/23 09:13 Currently or been in a relationship where the following occur: I choose not to answer this question Const General: cooperative, comfortable and no acute distress Orientation/consciousness: patient oriented x3 HENMT Head: Yes normocephalic and Yes atraumatic Eyes General: appearance normal, both eyes and all related structures Pupils: Equal, round and reactive pupils present EOM: EOMs intact bilaterally Neck Neck: Yes supple and No lymphadenopathy Thyroid: Thyroid normal Lymphatic: no lymphadenopathy noted Resp Effort & Inspection: normal respiratory effort and able to speak in complete sentences Auscultation: clear to auscultation bilaterally Cardio Heart sounds: S1 normal heart sound present and S2 normal heart sound present GI Palpation (GI): Soft to palpation and nontender Auscultation: normal bowel sounds General: Yes no CVA tenderness Back/Spine/Pelvis Back: no CVA tenderness Skin General skin exam: elasticity normal and turgor normal Neuro General: patient oriented x3 and gait normal Cranial nerves: Yes Equal, round and reactive pupils present Speech: No Abnormal speech present Sensory Exam: No Sensory deficit (Neuro) Coordination: Romberg test negative Extrem General: Yes normal exam except as noted and No edema Assessment and Plan Assessment & Plan (1) Adult general medical exam: Code(s): Z00.00 - Encounter for general adult medical examination without abnormal findings (2) Other specified hypothyroidism: Code(s): E03.8 - Other specified hypothyroidism (3) Hypertension, essential: Code(s): I10 - Essential (primary) hypertension (4) Polyneuropathy: Code(s): G62.9 - Polyneuropathy, unspecified (5) Vitamin B12 deficiency: Code(s): E53.8 - Deficiency of other specified B group vitamins (6) Vitamin D deficiency: Code(s): E55.9 - Vitamin D deficiency, unspecified (7) LFT elevation: Code(s): R79.89 - Other specified abnormal findings of blood chemistry Plan Patient is 63-year-old female came in today for physical examination Mammogram is up-to-date Patient has appointment in October with OBGYN She continued to declined to have colonoscopy, patient says maybe next year Blood pressure is stable Labs are due order placed Medication list reviewed Patient offer no new complaints today. Orders: Orders Vitamin D 25-OH (D2 and D3) Today E53.8 - Deficiency of other specified B group vitamins, E55.9 - Vitamin D deficiency, unspecified Vitamin B12 Today E53.8 - Deficiency of other specified B group vitamins, E55.9 - Vitamin D deficiency, unspecified Complete Blood Count Auto Diff Today E03.8 - Other specified hypothyroidism, E53.8 - Deficiency of other specified B group vitamins, E55.9 - Vitamin D deficiency, unspecified, G62.9 - Polyneuropathy, unspecified, I10 - Essential (primary) hypertension, R79.89 - Other specified abnormal findings of blood chemistry Comprehensive Met. Panel Today E03.8 - Other specified hypothyroidism, E53.8 - Deficiency of other specified B group vitamins, E55.9 - Vitamin D deficiency, unspecified, G62.9 - Polyneuropathy, unspecified, I10 - Essential (primary) hypertension, R79.89 - Other specified abnormal findings of blood chemistry TSH reflex Free T4 Today E03.8 - Other specified hypothyroidism, E53.8 - Deficiency of other specified B group vitamins, E55.9 - Vitamin D deficiency, unspecified, G62.9 - Polyneuropathy, unspecified, I10 - Essential (primary) hypertension, R79.89 - Other specified abnormal findings of blood chemistry Medications: Refilled atenolol One tab by mouth daily 50 mg PO DAILY 90 tabs 1RF 90 days hydrochlorothiazide 12.5 mg PO DAILY 90 caps 1RF 90 days levothyroxine 100 mcg PO DAILY 90 tabs 1RF 90 days E03.8 - Other specified hypothyroidism pantoprazole 40 mg PO DAILY 90 tabs 1RF 90 days K21.9 - Gastro-esophageal reflux disease without esophagitis Coding Level of Care Code Est Pt Prev Care >65y(13390) Diagnoses Adult general medical exam Z00.00 Other specified hypothyroidism E03.8 Hypertension, essential I10 Polyneuropathy G62.9 Vitamin B12 deficiency E53.8 Vitamin D deficiency E55.9 LFT elevation R79.89 Additional Codes MOMO-7 Assessment Billing - MOMO-7 Assessment Tool: MOMO-7 Assessment [id number] ([id number])
[2023-08-10 08:49] VITALS: BP 118/78; PULSE 60; O2SAT 96; BMI 44.4
== END 2023-08-10 09:09 | disposition home or self-care (01) ==
PROVIDERS: PCP Internal Medicine; Visit Provider Internal Medicine
DX: Z00.00 Encounter for general adult medical examination without abnormal findings (principal); E03.8 Other specified hypothyroidism; I10 Essential (primary) hypertension; G62.9 Polyneuropathy, unspecified; E53.8 Deficiency of other specified B group vitamins; E55.9 Vitamin D deficiency, unspecified; R79.89 Other specified abnormal findings of blood chemistry
CPT/HCPCS: 99397

== ENCOUNTER 2023-08-10 09:11 | Outpatient (REF) | payer BC, SELFPAY ==
[2023-08-10 11:07] LABS: MANUAL DIFF FLAG NO
[2023-08-10 11:27] LABS: Basophils Percent Auto 0.5 % (0-2); Eosinophils Absolute Auto 0.2 X10*3/uL (0.0-0.4); Hematocrit 43.5 % (37.0-47.0); Hemoglobin 15.1 g/dl (12.0-16.0); Imm Gran Abs Auto 0.02 X10*3/uL (0.00-0.03); Imm Gran Pct Auto 0.4 % (0.0-0.4); Lymphocytes Absolute Auto 1.2 X10*3/uL (1.2-4.9); Lymphocytes Percent Auto 22.5 % (20-40); Mean Corpuscular HGB Conc 34.7 g/dl (31.0-35.0); Mean Corpuscular Hemoglobin 35.6 pg (27.0-33.0); Mean Corpuscular Volume 102.6 fL (80.0-98.0); Mean Platelet Volume 9.6 fL (9.4-12.3); Monocytes Absolute Auto 0.5 X10*3/uL (0.1-1.2); Monocytes Percent Auto 8.8 % (2-11); Neutrophils Absolute Auto 3.5 x10*3/uL (2.0-8.3); Neutrophils Percent Auto 63.8 % (45-73); Platelet Count 252 X10*3/uL (160-400); Red Blood Count 4.24 X10*6/uL (4.20-5.50); Red Cell Distribution Width 13.6 % (11.0-16.0); White Blood Count 5.5 X10*3/uL (4.8-10.8)
[2023-08-10 11:55] LABS: Alanine Aminotransferase 9 U/L (0-31); Albumin Level 3.9 g/dL (3.5-5.0); Alkaline Phosphatase 85 U/L (39-117); Anion Gap 12 (12-20); Aspartate Amino Transferase 23 U/L (5-31); Bilirubin Total 1.8 mg/dL (0.0-1.0); Blood Urea Nitrogen 12 mg/dL (9-16); Calcium 9.4 mg/dL (8.4-10.2); Carbon Dioxide 28 mmol/L (22-29); Chloride 105 mmol/L (96-108); Estimated Glomerular Filt Rate > 60; Glucose Random 100 mg/dL (60-115); Potassium 3.7 mmol/L (3.3-5.1); Sodium 141 mmol/L (135-145); Total Protein 7.6 g/dL (6.5-8.0)
[2023-08-10 12:00] LABS: TSH reflex Free T4 0.94 uIU/mL (0.32-4.0)
[2023-08-10 12:05] LABS: Vitamin B12 > 2000 pg/mL (200-900)
[2023-08-14 16:49] LABS: Vitamin D 25-OH, D2 <4 ng/mL; Vitamin D 25-OH, D3 35 ng/mL; Vitamin D 25-OH, Total 35 ng/mL (30-100)
== END 2023-08-10 09:12 | disposition home or self-care (01) ==
LOC: HO.HMGCLDS 09:11
PROVIDERS: PCP Internal Medicine; Visit Provider Internal Medicine
DX: E55.9 Vitamin D deficiency, unspecified (principal); E53.8 Deficiency of other specified B group vitamins; E03.8 Other specified hypothyroidism; I10 Essential (primary) hypertension; G62.9 Polyneuropathy, unspecified; R79.89 Other specified abnormal findings of blood chemistry
CPT/HCPCS: 36415; 80053; 82306; 82607; 84443; 85025

== ENCOUNTER 2023-10-25 10:51 | Outpatient (AMB) | payer BC, SELFPAY ==
[2023-10-25 10:54] VITALS: BP 124/76; PULSE 78; O2SAT 97; BMI 42.9
--- NOTE | 2023-10-25 10:54 | MHC.PC.OV ---
Vital Signs 10/25/23 10:54 Height 5 ft 2 in Weight 234 lb 6 oz BMI 42.9 BP 124/76 Blood Pressure Location Lt brachial Position Sitting Pulse 78 Pulse Source Pulse Oximeter Pulse Oximetry (%) 97 Oxygen Delivery Method Room Air Intake Visit Reasons: swollen right foot Allergies No Known Allergies Allergy (Verified 10/25/23 10:54) Medication List - Last Reconciled 10/25/23 by Isabella Blount MD atenolol 50 mg PO DAILY 90 days cholecalciferol (vitamin D3) 25 mcg PO DAILY hydrochlorothiazide 12.5 mg PO DAILY 90 days levothyroxine 100 mcg PO DAILY 90 days pantoprazole 40 mg PO DAILY 90 days Tobacco use date assessed: 10/25/23 Fall risk assessment: No Falls in past year Last assessed Fall Risk: 10/25/23 Dental Screening Dental Screen Date: 10/25/23 Did you have a dental visit in the last 12 months?: Yes Did you have a dental problem in the last 6 months where you did not have access to dental care?: No Was dental information given to patient?: Patient has dentist HPI swollen right foot HPI Details Patient is 63-year-old female who have sedentary life style Came in today with a chief complaint of swelling of right lower extremity which started 3 days ago and is getting worse Patient says that it does not hurt, she can walk, but it feels like burning sensation in her foot On examination she does not have any calf tenderness however her foot is swollen and edematous I am ordering stat ultrasound of lower extremity to rule out DVT We will also get an x-ray of her foot Further management after the reports She has no shortness a breath no chest pain no nausea vomiting her US report showed no DVT, patient was notified lasix 20 mg sent, to be taken once a day for 5 days we will set up Telemed visit in few days to see how her swelling is PFSH Medical History Morbid obesity due to excess calories Polyneuropathy Hypertension, essential Chronic GERD COVID-19 Surgical History No pertinent past surgical history Family History Father Hypertension Mother No problems noted. Brother Hypertension Social History Housing: House Alcohol intake: current Alcohol intake frequency: holidays/special occasions only Patient Tobacco Use Status: Never used Tobacco e-Cigarette/Vaping Use: Never Used service: No Current occupational status: employed Cognitive needs: No Hearing needs: No Vision needs: Yes Female Reproductive History Menstrual Age of Menarche: 9 Questionnaire PHQ-9 Over the last 2 weeks, how often have you been bothered by any of the following problems? 1. Little interest or pleasure in doing things: not at all 2. Feeling down, depressed, or hopeless: not at all 3. Trouble falling or staying asleep, or sleeping too much: not at all 4. Feeling tired or having little energy: not at all 5. Poor appetite or overeating: not at all 6. Feeling bad about yourself - or that you are a failure or have let yourself or your family down: not at all 7. Trouble concentrating on things, such as reading the newspaper or watching television: not at all 8. Moving or speaking so slowly that other people could have noticed. Or the opposite - being so fidgety or restless that you have been moving around a lot more than usual: not at all 9. Thoughts that you would be better off or of hurting yourself in some way: not at all Total score: 0 Depression Screening Interpretation: Negative Depression Screening Done: Yes 81440 - PHQ-9 Billing: Yes Source: Developed by Drs. Chance Ruiz, Tere Soria, Jeevan Márquez and colleagues, with an educational sami from [employer]. Thrive Questionnaire Date Thrive assessed: 10/25/23 I am a: Patient What is your living situation today?: I have a steady place to live Within the past 12 months, did the food you bought not last and you didn't have the money to get more?: Never true Within the past 12 months, did you worry whether your food would run out before you got money to buy more?: Never true Do you have trouble paying for medicines?: No Do you have trouble getting transportation to medical appointments?: No Do you have trouble paying your heating and electricity bill?: No Do you have trouble taking care of your child, family member or friend?: No Do you have trouble with day-to-day activities such as bathing, preparing meals, shopping, managing finances, etc.?: No Are you currently unemployed and looking for a job?: No Are you interested in more education?: No Please select the resources that you would like help with: None Currently or been in a relationship where the following occur: No concerns reported THRIVE Score: 0 AUDIT C Alcohol Use Questionnaire (AUDIT-C) 1. How often do you have a drink containing alcohol?: Monthly or less 2. How many drinks containing alcohol do you have on a typical day when you are drinking?: 1 or 2 3. How often do you have six or more drinks on one occasion?: Never Total Score: 1 Score Reviewed/Action Taken: Yes MOMO-7 AMB Questionnaire MOMO-7 Date MOMO - 7 assessed: 10/25/23 Feeling nervous, anxious, or on edge: 0 = Not at all Not being able to stop or control worryin = Not at all Worrying too much about different things: 0 = Not at all Trouble relaxin = Not at all Being so restless that it is hard to sit still: 0 = Not at all Becoming easily annoyed or irritable: 0 = Not at all Feeling afraid as if something awful might happen: 0 = Not at all Total MOMO-7 score (0-4 normal; 5-9 mild; 10-14 moderate; 15-21 severe): 0 Source: Developed by Drs. Chance Ruiz, Tere Soria, Jeevan Márquez and colleagues, with an educational sami from [employer]. MOMO-7 Assessment Billing MOMO-7 Assessment Tool: MOMO-7 Assessment 56933 Review of Systems Const Denies chills and Denies fever(s) ENT Denies epistaxis and Denies nasal discharge Card Denies chest pain Resp Denies chest congestion, Denies cough and Denies hemoptysis GI Denies diarrhea and Denies nausea Skin/Breast Denies rash Neuro Reports no additional complaints Psych Reports no additional complaints Endo Reports no additional complaints Physical exam (Primary Care) Vital Signs: Last Vital Signs Pulse 78 10/25/23 10:54 BP 124/76 10/25/23 10:54 Pulse Ox 97 10/25/23 10:54 Oxygen Delivery Method Room Air 10/25/23 10:54 BMI result Body Mass Index 42.9 Tobacco/Smoking Status: Tobacco use Status Tobacco use date assessed 10/25/23 10/25/23 10:56 Patient Tobacco Use Status Never used Tobacco 10/25/23 10:56 e-Cigarette/Vaping Use Never Used 10/25/23 10:56 PHQ-9: PHQ-9 Score PHQ-9: Total score 0 10/25/23 11:10 Depression Screening Interpretation: Negative Thrive Assessment: Date of Thrive Assessment Date Thrive assessed 10/25/23 10/25/23 11:00 Currently or been in a relationship where the following occur: No concerns reported Const General: cooperative, comfortable and no acute distress Orientation/consciousness: patient oriented x3 HENMT Head: Yes normocephalic Eyes General: appearance normal, both eyes and all related structures Neck Neck: Yes supple Resp Effort & Inspection: normal respiratory effort, no cough and no stridor Cardio Rhythm: regular rhythm Heart sounds: S1 normal heart sound present and S2 normal heart sound present Skin General skin exam: turgor normal Neuro General: patient oriented x3, tone normal and moves all extremities Extrem Other: Right lower extremity no pain with calf palpation, foot is edematous 2+ pitting, pain with foot palpation, dorsalis pedis pulse palpable, sensory intact in foot, patient is able to move all does Assessment and Plan Assessment & Plan (1) Swelling of lower extremity: Code(s): M79.89 - Other specified soft tissue disorders (2) Foot pain, right: Code(s): M79.671 - Pain in right foot Plan Patient is 63-year-old female who have sedentary life style Came in today with a chief complaint of swelling of right lower extremity which started 3 days ago and is getting worse Patient says that it does not hurt, she can walk, but it feels like burning sensation in her foot On examination she does not have any calf tenderness however her foot is swollen and edematous I am ordering stat ultrasound of lower extremity to rule out DVT We will also get an x-ray of her foot Further management after the reports She has no shortness a breath no chest pain no nausea vomiting her US report showed no DVT, patient was notified lasix 20 mg sent, to be taken once a day for 5 days we will set up Telemed visit in few days to see how her swelling is Orders: Orders XR foot RT 2V Today M79.671 - Pain in right foot US venous duplex LE RT Today M79.89 - Other specified soft tissue disorders Coding Level of Care Code Est Pt Level 4 (26126) Diagnoses Swelling of lower extremity M79.89 Foot pain, right M79.671 Additional Codes MOMO-7 Assessment Billing - MOMO-7 Assessment Tool: MOMO-7 Assessment 89377 ([id number])
== END 2023-10-25 13:07 | disposition home or self-care (01) ==
PROVIDERS: PCP Internal Medicine; Visit Provider Internal Medicine
DX: M79.89 Other specified soft tissue disorders (principal); M79.671 Pain in right foot
CPT/HCPCS: 99214

== ENCOUNTER 2023-10-25 11:43 | Outpatient (REF) | payer BC, SELFPAY ==
--- NOTE | ~2023-10-25 | US_ITS ---
EXAMINATION: US TRIPLEX LOWER EXTREMITY, RIGHT CLINICAL INFORMATION: Right leg swelling. Rule out DVT. COMPARISON: None available. TECHNIQUE: Color-flow triplex imaging with spectral analysis and compression Doppler were performed on the right lower extremity. FINDINGS: Respiratory variation, normal compression and augmented flow are noted throughout the right lower extremity. The visualized common femoral vein, superficial femoral vein, profunda femoral vein, popliteal vein and midcalf peroneal and posterior tibial venous segments show no evidence of deep venous thrombosis. There is no Rojas's cyst. US/US venous duplex LE RT IMPRESSION: No evidence of deep venous thrombosis involving the right lower extremity. Electronically signed by: Walt Ritter MD 10/25/2023 12:53 PM EDT
== END 2023-10-25 11:44 | disposition home or self-care (01) ==
LOC: HO.HMGCX 11:43
PROVIDERS: PCP Internal Medicine; Visit Provider Internal Medicine
DX: M79.604 Pain in right leg (principal); R60.0 Localized edema
CPT/HCPCS: 93971

== ENCOUNTER 2023-11-03 08:23 | Outpatient (AMB) | payer BC, SELFPAY ==
--- NOTE | 2023-11-03 08:41 | A.OFFPC_ITS ---
Intake Visit Reasons: RT foot swelling f/u~ [phone] Allergies No Known Allergies Allergy (Verified 11/03/23 08:41) Medication List - Last Reconciled 11/03/23 by Isabella Blount MD atenolol 50 mg PO DAILY 90 days cholecalciferol (vitamin D3) 25 mcg PO DAILY furosemide (Lasix) 20 mg PO DAILY hydrochlorothiazide 12.5 mg PO DAILY 90 days levothyroxine 100 mcg PO DAILY 90 days pantoprazole 40 mg PO DAILY 90 days Tobacco use date assessed: 11/03/23 Fall risk assessment: No Falls in past year Last assessed Fall Risk: 11/03/23 Dental Screening Dental Screen Date: 11/03/23 Did you have a dental visit in the last 12 months?: No Did you have a dental problem in the last 6 months where you did not have access to dental care?: No Was dental information given to patient?: No HPI RT foot swelling f/u~ [phone] HPI Details US was negative for DVT Lasix did help, after 3 days patient was pain free but it was only sent for a week, and she is now done has started to feel slight burning and pain but not like before i have sent more tabs of lasix and also added celebrax 200 mg one in am with food [facility] Medical History Morbid obesity due to excess calories Polyneuropathy Hypertension, essential Chronic GERD COVID-19 Surgical History No pertinent past surgical history Family History Father Hypertension Mother No problems noted. Brother Hypertension Social History Housing: House Alcohol intake: current Alcohol intake frequency: holidays/special occasions only Patient Tobacco Use Status: Never used Tobacco e-Cigarette/Vaping Use: Never Used service: No Current occupational status: employed Cognitive needs: No Hearing needs: No Vision needs: Yes Female Reproductive History Menstrual Age of Menarche: 9 Questionnaire PHQ-9 Over the last 2 weeks, how often have you been bothered by any of the following problems? 1. Little interest or pleasure in doing things: not at all 2. Feeling down, depressed, or hopeless: not at all 3. Trouble falling or staying asleep, or sleeping too much: not at all 4. Feeling tired or having little energy: not at all 5. Poor appetite or overeating: not at all 6. Feeling bad about yourself - or that you are a failure or have let yourself or your family down: not at all 7. Trouble concentrating on things, such as reading the newspaper or watching television: not at all 8. Moving or speaking so slowly that other people could have noticed. Or the opposite - being so fidgety or restless that you have been moving around a lot more than usual: not at all 9. Thoughts that you would be better off or of hurting yourself in some way: not at all Total score: 0 Depression Screening Interpretation: Negative Depression Screening Done: Yes 70423 - PHQ-9 Billing: Yes Source: Developed by Drs. Chance Ruiz, Tere Soria, Jeevan Márquez and colleagues, with an educational sami from [employer]. Thrive Questionnaire Date Thrive assessed: 11/03/23 I am a: Patient What is your living situation today?: I have a steady place to live Within the past 12 months, did the food you bought not last and you didn't have the money to get more?: Never true Within the past 12 months, did you worry whether your food would run out before you got money to buy more?: Never true Do you have trouble paying for medicines?: No Do you have trouble getting transportation to medical appointments?: No Do you have trouble paying your heating and electricity bill?: No Do you have trouble taking care of your child, family member or friend?: No Do you have trouble with day-to-day activities such as bathing, preparing meals, shopping, managing finances, etc.?: No Are you currently unemployed and looking for a job?: No Are you interested in more education?: No Please select the resources that you would like help with: None Currently or been in a relationship where the following occur: No concerns reported THRIVE Score: 0 AUDIT C Alcohol Use Questionnaire (AUDIT-C) 1. How often do you have a drink containing alcohol?: Monthly or less 2. How many drinks containing alcohol do you have on a typical day when you are drinking?: 1 or 2 3. How often do you have six or more drinks on one occasion?: Never Total Score: 1 Score Reviewed/Action Taken: Yes MOMO-7 AMB Questionnaire MOMO-7 Date MOMO - 7 assessed: 11/03/23 Feeling nervous, anxious, or on edge: 0 = Not at all Not being able to stop or control worryin = Not at all Worrying too much about different things: 0 = Not at all Trouble relaxin = Not at all Being so restless that it is hard to sit still: 0 = Not at all Becoming easily annoyed or irritable: 0 = Not at all Feeling afraid as if something awful might happen: 0 = Not at all Total MOMO-7 score (0-4 normal; 5-9 mild; 10-14 moderate; 15-21 severe): 0 Source: Developed by Drs. Chance Ruiz, Tere Soria, Jeevan Márquez and colleagues, with an educational sami from [employer]. MOMO-7 Assessment Billing MOMO-7 Assessment Tool: MOMO-7 Assessment 88709 Review of Systems Const Denies chills and Denies fever(s) ENT Denies epistaxis and Denies nasal discharge Card Denies chest pain Resp Denies chest congestion, Denies cough and Denies hemoptysis GI Denies diarrhea and Denies nausea Skin/Breast Denies rash Neuro Reports no additional complaints Psych Reports no additional complaints Endo Reports no additional complaints Physical exam (Primary Care) Tobacco/Smoking Status: Tobacco use Status Tobacco use date assessed 11/03/23 11/03/23 08:42 Patient Tobacco Use Status Never used Tobacco 11/03/23 08:42 e-Cigarette/Vaping Use Never Used 11/03/23 08:42 PHQ-9: PHQ-9 Score PHQ-9: Total score 0 11/03/23 08:42 Depression Screening Interpretation: Negative Thrive Assessment: Date of Thrive Assessment Date Thrive assessed 11/03/23 11/03/23 08:42 Currently or been in a relationship where the following occur: No concerns reported Telehealth Telehealth Telehealth Platform: [facility] Location of provider rendering services: practice address Location of patient: address on file Patient Identification confirmed using: Name, : Yes Telehealth method: video Patient verbally consented to treatment: Yes Patient verbally consented to billing insurance company: Yes Patient informed of any privacy concerns related to visit: Yes Minutes spent on Phone/Video with Pt.: 13 Assessment and Plan Assessment & Plan (1) Swelling of lower extremity: Code(s): M79.89 - Other specified soft tissue disorders (2) Foot pain, right: Code(s): M79.671 - Pain in right foot Plan US was negative for DVT Lasix did help, after 3 days patient was pain free but it was only sent for a week, and she is now done has started to feel slight burning and pain but not like before i have sent more tabs of lasix and also added celebrax 200 mg one in am with food Medications: New celecoxib (Celebrex) take it with food 200 mg PO .q am 30 caps 0RF Refilled furosemide (Lasix) 20 mg PO DAILY 14 tabs 0RF Coding Level of Care Code Tele Est Pt Level 3 (15351) Diagnoses Swelling of lower extremity M79.89 Foot pain, right M79.671 Additional Codes MOMO-7 Assessment Billing - MOMO-7 Assessment Tool: MOMO-7 Assessment 48696 ([id number])
== END 2023-11-03 09:04 | disposition home or self-care (01) ==
LOC: HO.HMGC 08:23
PROVIDERS: PCP Internal Medicine; Visit Provider Internal Medicine
DX: M79.89 Other specified soft tissue disorders (principal); M79.671 Pain in right foot
CPT/HCPCS: 99213

== ENCOUNTER 2023-11-23 08:28 | Outpatient (AMB) | payer BC, SELFPAY ==
--- NOTE | 2023-11-23 08:33 | A.OFFPC_ITS ---
Vital Signs 11/23/23 08:38 Height 5 ft 2 in Weight 232 lb 4 oz BMI 42.5 BP 122/68 Blood Pressure Location Lt brachial Position Sitting Pulse 59 Pulse Source Pulse Oximeter Pulse Oximetry (%) 98 Oxygen Delivery Method Room Air Intake Visit Reasons: 4M F/U Allergies No Known Allergies Allergy (Verified 11/03/23 08:41) Medication List - Last Reconciled 11/23/23 by Isabella Blount MD atenolol 50 mg PO DAILY 90 days celecoxib (Celebrex) 200 mg PO .q am cholecalciferol (vitamin D3) 25 mcg PO DAILY furosemide (Lasix) 20 mg PO DAILY hydrochlorothiazide 12.5 mg PO DAILY 90 days levothyroxine 100 mcg PO DAILY 90 days pantoprazole 40 mg PO DAILY 90 days Tobacco use date assessed: 11/03/23 Dental Screening Dental Screen Date: 11/03/23 HPI 4M F/U HPI Details Patient is 63-year-old female came in today for 4 month follow-up appointment Last month she complained of feeling pain and tingling sensation in her feet due to swelling Ultrasound leg was negative for DVT Patient was prescribed Lasix which did help with the swelling And Celebrex for pain. Patient says that when she was taking both medications her pain was resolved As she ran out of Lasix she is started to feel the discomfort I have sent both medication patient may continue that daily. Labs are needed in three-month before visit She is not interested to see radiator specialist or vascular at this time Hypertension: Patient is on atenolol 50 mg and hydrochlorothiazide 12.5 mg for blood pressure, blood pressure is stable patient is tolerating medication Hypothyroidism:? Patient is on levothyroxine 100 mcg.? Dyspepsia stable with pantoprazole 40 mg daily She is also on vitamin-D supplement.? Supplement B12 level was too high in July, that is on hold BMI is above 40 patient need to lose weight, patient is trying to lose weight [facility] Medical History Morbid obesity due to excess calories Polyneuropathy Hypertension, essential Chronic GERD COVID-19 Surgical History No pertinent past surgical history Family History Father Hypertension Mother No problems noted. Brother Hypertension Social History Housing: House Alcohol intake: current Alcohol intake frequency: holidays/special occasions only Patient Tobacco Use Status: Never used Tobacco e-Cigarette/Vaping Use: Never Used service: No Current occupational status: employed Cognitive needs: No Hearing needs: No Vision needs: Yes Female Reproductive History Menstrual Age of Menarche: 9 Questionnaire Thrive Questionnaire Date Thrive assessed: 10/25/23 I am a: Patient What is your living situation today?: I have a steady place to live Within the past 12 months, did the food you bought not last and you didn't have the money to get more?: Never true Within the past 12 months, did you worry whether your food would run out before you got money to buy more?: Never true Do you have trouble paying for medicines?: No Do you have trouble getting transportation to medical appointments?: No Do you have trouble paying your heating and electricity bill?: No Do you have trouble taking care of your child, family member or friend?: No Do you have trouble with day-to-day activities such as bathing, preparing meals, shopping, managing finances, etc.?: No Are you currently unemployed and looking for a job?: No Are you interested in more education?: No Please select the resources that you would like help with: None Currently or been in a relationship where the following occur: No concerns reported THRIVE Score: 0 MOMO-7 AMB Questionnaire MOMO-7 Date MOMO - 7 assessed: 11/03/23 Source: Developed by Drs. Chance Ruiz, Tere Soria, Jeevan Márquez and colleagues, with an educational sami from [employer]. Review of Systems Const Denies chills and Denies fever(s) ENT Denies epistaxis and Denies nasal discharge Card Denies chest pain Resp Denies chest congestion, Denies cough and Denies hemoptysis GI Denies diarrhea and Denies nausea Skin/Breast Denies rash Neuro Reports no additional complaints Psych Reports no additional complaints Endo Reports no additional complaints Physical exam (Primary Care) Vital Signs: Last Vital Signs Pulse 59 11/23/23 08:38 BP 122/68 11/23/23 08:38 Pulse Ox 98 11/23/23 08:38 Oxygen Delivery Method Room Air 11/23/23 08:38 BMI result Body Mass Index 42.5 Tobacco/Smoking Status: Tobacco use Status Tobacco use date assessed 11/03/23 11/23/23 08:34 Patient Tobacco Use Status Never used Tobacco 11/23/23 08:34 e-Cigarette/Vaping Use Never Used 11/23/23 08:34 Thrive Assessment: Date of Thrive Assessment Date Thrive assessed 10/25/23 11/23/23 08:34 Currently or been in a relationship where the following occur: No concerns reported Const General: cooperative, comfortable and no acute distress Orientation/consciousness: patient oriented x3 HENMT Head: Yes normocephalic Eyes General: appearance normal, both eyes and all related structures Neck Neck: Yes supple Resp Effort & Inspection: normal respiratory effort, no cough and no stridor Cardio Rhythm: regular rhythm Heart sounds: S1 normal heart sound present and S2 normal heart sound present Skin General skin exam: turgor normal Neuro General: patient oriented x3, tone normal and moves all extremities Extrem Right lower extremity: no edema Left lower extremity: no edema Coding Level of Care Code Est Pt Level 4 (20435) Diagnoses Other specified hypothyroidism E03.8 Chronic GERD K21.9 Hypertension, essential I10 Polyneuropathy G62.9 Morbid obesity due to excess calories E66.01 Vitamin D deficiency E55.9 LFT elevation R79.89 Swelling of lower extremity M79.89 Foot pain, right M79.671 Assessment & Plan Assessment & Plan (1) Other specified hypothyroidism: Code(s): E03.8 - Other specified hypothyroidism Category: Medical (2) Chronic GERD: Code(s): K21.9 - Gastro-esophageal reflux disease without esophagitis Category: Medical (3) Hypertension, essential: Code(s): I10 - Essential (primary) hypertension Category: Medical (4) Polyneuropathy: Code(s): G62.9 - Polyneuropathy, unspecified Category: Medical (5) Morbid obesity due to excess calories: Code(s): E66.01 - Morbid (severe) obesity due to excess calories Category: Medical (6) Vitamin D deficiency: Code(s): E55.9 - Vitamin D deficiency, unspecified Category: Medical (7) LFT elevation: Code(s): R79.89 - Other specified abnormal findings of blood chemistry Category: Medical (8) Swelling of lower extremity: Code(s): M79.89 - Other specified soft tissue disorders Category: Medical (9) Foot pain, right: Code(s): M79.671 - Pain in right foot Category: Medical Plan Patient is 63-year-old female came in today for 4 month follow-up appointment Last month she complained of feeling pain and tingling sensation in her feet due to swelling Ultrasound leg was negative for DVT Patient was prescribed Lasix which did help with the swelling And Celebrex for pain. Patient says that when she was taking both medications her pain was resolved As she ran out of Lasix she is started to feel the discomfort I have sent both medication patient may continue that daily. Labs are needed in three-month before visit She is not interested to see radiator specialist or vascular at this time She has no edema today Hypertension: Patient is on atenolol 50 mg and hydrochlorothiazide 12.5 mg for blood pressure, blood pressure is stable patient is tolerating medication Hypothyroidism:? Patient is on levothyroxine 100 mcg.? Dyspepsia stable with pantoprazole 40 mg daily She is also on vitamin-D supplement.? Supplement B12 level was too high in July, that is on hold BMI is above 40 patient need to lose weight, patient is trying to lose weight Orders: Orders Comprehensive Met. Panel 2 Months E03.8 - Other specified hypothyroidism, E55.9 - Vitamin D deficiency, unspecified, E66.01 - Morbid (severe) obesity due to excess calories, G62.9 - Polyneuropathy, unspecified, I10 - Essential (primary) hypertension, K21.9 - Gastro-esophageal reflux disease without esophagitis, M79.671 - Pain in right foot, M79.89 - Other specified soft tissue disorders, R79.89 - Other specified abnormal findings of blood chemistry TSH reflex Free T4 2 Months E03.8 - Other specified hypothyroidism, E55.9 - Vitamin D deficiency, unspecified, E66.01 - Morbid (severe) obesity due to exce ss calories, G62.9 - Polyneuropathy, unspecified, I10 - Essential (primary) hypertension, K21.9 - Gastro-esophageal reflux disease without esophagitis, M79.671 - Pain in right foot, M79.89 - Other specified soft tissue disorders, R79.89 - Other specified abnormal findings of blood chemistry Vitamin B12 2 Months E03.8 - Other specified hypothyroidism, E55.9 - Vitamin D deficiency, unspecified, E66.01 - Morbid (severe) obesity due to excess calories, G62.9 - Polyneuropathy, unspecified, I10 - Essential (primary) hypertension, K21.9 - Gastro-esophageal reflux disease without esophagitis, M79.671 - Pain in right foot, M79.89 - Other specified soft tissue disorders, R79.89 - Other specified abnormal findings of blood chemistry Complete Blood Count Auto Diff 2 Months E03.8 - Other specified hypothyroidism, E55.9 - Vitamin D deficiency, unspecified, E66.01 - Morbid (severe) obesity due to excess calories, G62.9 - Polyneuropathy, unspecified, I10 - Essential (primary) hypertension, K21.9 - Gastro-esophageal reflux disease without esophagitis, M79.671 - Pain in right foot, M79.89 - Other specified soft tissue disorders, R79.89 - Other specified abnormal findings of blood chemistry Vitamin D 25-OH (D2 and D3) 2 Months E03.8 - Other specified hypothyroidism, E55.9 - Vitamin D deficiency, unspecified, E66.01 - Morbid (severe) obesity due to excess calories, G62.9 - Polyneuropathy, unspecified, I10 - Essential (primary) hypertension, K21.9 - Gastro-esophageal reflux disease without esophagitis, M79.671 - Pain in right foot, M79.89 - Other specified soft tissue disorders, R79.89 - Other specified abnormal findings of blood chemistry LDL Cholesterol Direct 2 Months E03.8 - Other specified hypothyroidism, E55.9 - Vitamin D deficiency, unspecified, E66.01 - Morbid (severe) obesity due to excess calories, G62.9 - Polyneuropathy, unspecified, I10 - Essential (primary) hypertension, K21.9 - Gastro-esophageal reflux disease without esophagitis, M79.671 - Pain in right foot, M79.89 - Other specified soft tissue disorders, R79.89 - Other specified abnormal findings of blood chemistry Medications: Refilled celecoxib (Celebrex) take it with food 200 mg PO .q am 90 caps 0RF furosemide (Lasix) 20 mg PO DAILY 90 tabs 0RF
[2023-11-23 08:38] VITALS: BP 122/68; PULSE 59; O2SAT 98; BMI 42.5
== END 2023-11-23 08:58 | disposition home or self-care (01) ==
PROVIDERS: PCP Internal Medicine; Visit Provider Internal Medicine
DX: E03.8 Other specified hypothyroidism (principal); E66.01 Morbid (severe) obesity due to excess calories; Z68.41 Body mass index [BMI] 40.0-44.9, adult; K21.9 Gastro-esophageal reflux disease without esophagitis; I10 Essential (primary) hypertension; G62.9 Polyneuropathy, unspecified; E55.9 Vitamin D deficiency, unspecified; M79.89 Other specified soft tissue disorders; M79.671 Pain in right foot

== ENCOUNTER → 2023-11-23 08:28 | Outpatient (BNVA) | payer BC, SELFPAY | PROVIDERS: PCP Internal Medicine; Visit Provider Internal Medicine ==

== ENCOUNTER 2024-02-24 08:37 | Outpatient (REF) | payer BC, SELFPAY ==
[2024-02-24 09:58] LABS: MANUAL DIFF FLAG NO
[2024-02-24 10:05] LABS: Basophils Percent Auto 0.7 % (0-2); Eosinophils Absolute Auto 0.3 X10*3/uL (0.0-0.4); Eosinophils Percent Auto 5.6 % (0-4); Hematocrit 42.1 % (37.0-47.0); Hemoglobin 14.5 g/dl (12.0-16.0); Imm Gran Abs Auto 0.01 X10*3/uL (0.00-0.03); Imm Gran Pct Auto 0.2 % (0.0-0.4); Lymphocytes Absolute Auto 1.4 X10*3/uL (1.2-4.9); Lymphocytes Percent Auto 23.7 % (20-40); Mean Corpuscular HGB Conc 34.4 g/dl (31.0-35.0); Mean Corpuscular Hemoglobin 34.7 pg (27.0-33.0); Mean Corpuscular Volume 100.7 fL (80.0-98.0); Mean Platelet Volume 9.4 fL (9.4-12.3); Monocytes Absolute Auto 0.4 X10*3/uL (0.1-1.2); Monocytes Percent Auto 7.5 % (2-11); Neutrophils Absolute Auto 3.6 x10*3/uL (2.0-8.3); Neutrophils Percent Auto 62.3 % (45-73); Platelet Count 241 X10*3/uL (160-400); Red Blood Count 4.18 X10*6/uL (4.20-5.50); Red Cell Distribution Width 14.3 % (11.0-16.0); White Blood Count 5.7 X10*3/uL (4.8-10.8)
[2024-02-24 10:38] LABS: Alanine Aminotransferase 7 U/L (0-31); Alkaline Phosphatase 90 U/L (39-117); Anion Gap 10 (12-20); Aspartate Amino Transferase 21 U/L (5-31); Bilirubin Total 1.4 mg/dL (0.0-1.0); Blood Urea Nitrogen 18 mg/dL (9-16); Calcium 9.2 mg/dL (8.4-10.2); Carbon Dioxide 28 mmol/L (22-29); Chloride 106 mmol/L (96-108); Estimated Glomerular Filt Rate 60; Glucose Random 114 mg/dL (60-115); Potassium 3.6 mmol/L (3.3-5.1); Sodium 140 mmol/L (135-145); Total Protein 7.8 g/dL (6.5-8.0)
[2024-02-24 10:54] LABS: TSH reflex Free T4 6.68 uIU/mL (0.32-4.0)
[2024-02-24 11:32] LABS: Vitamin B12 673 pg/mL (200-900)
[2024-02-24 11:58] LABS: Free T4 (Free Thyroxine) 1.04 ng/dL (0.71-1.85)
[2024-02-26 12:44] LABS: LDL Cholesterol Direct 103 mg/dL (<100)
[2024-03-02 13:58] LABS: Vitamin D 25-OH, D2 <4 ng/mL; Vitamin D 25-OH, D3 32 ng/mL; Vitamin D 25-OH, Total 32 ng/mL (30-100)
== END 2024-02-24 08:38 | disposition home or self-care (01) ==
LOC: HO.HMGCLDS 08:37
PROVIDERS: PCP Internal Medicine; Visit Provider Internal Medicine
DX: E03.8 Other specified hypothyroidism (principal); I10 Essential (primary) hypertension; K21.9 Gastro-esophageal reflux disease without esophagitis; G62.9 Polyneuropathy, unspecified; E66.01 Morbid (severe) obesity due to excess calories; E55.9 Vitamin D deficiency, unspecified; R79.89 Other specified abnormal findings of blood chemistry; M79.671 Pain in right foot; M79.89 Other specified soft tissue disorders
CPT/HCPCS: 36415; 80053; 82306; 82607; 83721; 84439; 84443; 85025; 96127

== ENCOUNTER 2024-02-24 08:37 | Outpatient (AMB) | payer BC, SELFPAY ==
--- NOTE | 2024-02-24 08:39 | A.OFFPC_ITS ---
Vital Signs 02/24/24 08:40 Height 5 ft 2 in Weight 242 lb 2 oz BMI 44.3 BP 124/80 Blood Pressure Location Lt brachial Position Sitting Pulse 58 Pulse Source Pulse Oximeter Pulse Oximetry (%) 98 Oxygen Delivery Method Room Air Intake Visit Reasons: 3m follow up Allergies No Known Allergies Allergy (Verified 02/24/24 08:40) Medication List - Last Reconciled 02/24/24 by Isabella Blount MD atenolol 50 mg PO DAILY 90 days celecoxib (Celebrex) 200 mg PO .q am cholecalciferol (vitamin D3) 25 mcg PO DAILY furosemide (Lasix) 20 mg PO DAILY hydrochlorothiazide 12.5 mg PO DAILY 90 days levothyroxine 100 mcg PO DAILY 90 days pantoprazole 40 mg PO DAILY 90 days Tobacco use date assessed: 02/24/24 Fall risk assessment: No Falls in past year Last assessed Fall Risk: 02/24/24 Dental Screening Dental Screen Date: 02/24/24 Did you have a dental visit in the last 12 months?: Yes Did you have a dental problem in the last 6 months where you did not have access to dental care?: No Was dental information given to patient?: Patient has dentist HPI 3m follow up HPI Details History - bulleted - The patient is a 63-year-old female pr esenting for a regular follow-up appointment. - Essential Hypertension: Blood pressure is reported as stable and well- controlled. - Hypervitaminosis B12: Patient previous ly had elevated vitamin B12 levels, and it was advised to discontinue vitamin B12 supplementation. Vitamin B12 levels were confirmed to be very high in a laboratory test. - Periodic labs required due to ongoing management and health monitoring. Laboratory orders are currently in the system for today. - continue Lasix and Celebrex for arthri tis and lower extremity swelling which is helping patient - GERD stable with pantoprazole - hypothyroidism: Continue levothyroxine 100 mcg - morbid obesity, patient is having diff iculty losing weight Review of Systems - Cardiovascular: Denies leg or ankle sw elling. - General: Reports overall well-being an d absence of pain. - Musculoskeletal: Denies joint pain. - Neurological: Denies any symptoms. - General: No fever no chills - Neurological: No headaches no dizziness - Ear nose throat: No sore throat no hearing difficulty no ear pain - Cardiovascular: No syncope, no chest pain, no palpitations - Gastrointestinal: No nausea vomiting or diarrhea - Endocrine: No polyuria polydipsia no heat intolerance - Genitourinary: No dysuria , no blood in urine Physical Exam General: No acute distress HEENT: No acute findings Neck: Supple Respiratory system: Able to talk in full sentences, no audible wheeze cardiovascular: S1-S2 regular in rate and rhythm Gastrointestinal: No pain Extremities: No swelling, no pain JEEP MECHANIC: Alert awake oriented x3 motor sensory intact Skin: Normal turgor Patient Instructions - Proceed to the lab for required blood tests as ordered. - Discontinue vitamin B12 supplementatio n. - Maintain current hypertension manageme nt and continue monitoring. - Return for a follow-up appointment in early May. [facility] Medical History Morbid obesity due to excess calories Polyneuropathy Hypertension, essential Chronic GERD COVID-19 Surgical History No pertinent past surgical history Family History Father Hypertension Mother No problems noted. Brother Hypertension Social History Housing: House Alcohol intake: current Alcohol intake frequency: holidays/special occasions only Patient Tobacco Use Status: Never used Tobacco e-Cigarette/Vaping Use: Never Used service: No Current occupational status: employed Cognitive needs: No Hearing needs: No Vision needs: Yes Female Reproductive History Menstrual Age of Menarche: 9 Questionnaire PHQ-9 Over the last 2 weeks, how often have you been bothered by any of the following problems? 1. Little interest or pleasure in doing things: not at all 2. Feeling down, depressed, or hopeless: not at all 3. Trouble falling or staying asleep, or sleeping too much: not at all 4. Feeling tired or having little energy: not at all 5. Poor appetite or overeating: not at all 6. Feeling bad about yourself - or that you are a failure or have let yourself or your family down: not at all 7. Trouble concentrating on things, such as reading the newspaper or watching television: not at all 8. Moving or speaking so slowly that other people could have noticed. Or the opposite - being so fidgety or restless that you have been moving around a lot more than usual: not at all 9. Thoughts that you would be better off or of hurting yourself in some way: not at all Total score: 0 Depression Screening Interpretation: Negative Depression Screening Done: Yes 23005 - PHQ-9 Billing: Yes Source: Developed by Drs. Chance Ruiz, Tere Soria, Jeevan Márquez and colleagues, with an educational sami from [employer]. Thrive Questionnaire Date Thrive assessed: 02/24/24 I am a: Patient What is your living situation today?: I have a steady place to live Within the past 12 months, did the food you bought not last and you didn't have the money to get more?: Never true Within the past 12 months, did you worry whether your food would run out before you got money to buy more?: Never true Do you have trouble paying for medicines?: No Do you have trouble getting transportation to medical appointments?: No Do you have trouble paying your heating and electricity bill?: No Do you have trouble taking care of your child, family member or friend?: No Do you have trouble with day-to-day activities such as bathing, preparing meals, shopping, managing finances, etc.?: No Are you currently unemployed and looking for a job?: No Are you interested in more education?: No Please select the resources that you would like help with: None Currently or been in a relationship where the following occur: No concerns reported THRIVE Score: 0 AUDIT C Alcohol Use Questionnaire (AUDIT-C) 1. How often do you have a drink containing alcohol?: 2-4 times a month 2. How many drinks containing alcohol do you have on a typical day when you are drinking?: 1 or 2 3. How often do you have six or more drinks on one occasion?: Never Total Score: 2 Score Reviewed/Action Taken: Yes MOMO-7 AMB Questionnaire MOMO-7 Date MOMO - 7 assessed: 02/24/24 Feeling nervous, anxious, or on edge: 0 = Not at all Not being able to stop or control worryin = Not at all Worrying too much about different things: 0 = Not at all Trouble relaxin = Not at all Being so restless that it is hard to sit still: 0 = Not at all Becoming easily annoyed or irritable: 0 = Not at all Feeling afraid as if something awful might happen: 0 = Not at all Total MOMO-7 score (0-4 normal; 5-9 mild; 10-14 moderate; 15-21 severe): 0 Source: Developed by Drs. Chance Ruiz, Tere Soria, Jeevan Márquez and colleagues, with an educational sami from [employer]. MOMO-7 Assessment Billing MOMO-7 Assessment Tool: MOMO-7 Assessment 00892 Physical exam (Primary Care) Vital Signs: Last Vital Signs Pulse 58 02/24/24 08:40 BP 124/80 02/24/24 08:40 Pulse Ox 98 02/24/24 08:40 Oxygen Delivery Method Room Air 02/24/24 08:40 BMI result Body Mass Index 44.3 Tobacco/Smoking Status: Tobacco use Status Tobacco use date assessed 02/24/24 02/24/24 08:45 Patient Tobacco Use Status Never used Tobacco 02/24/24 08:45 e-Cigarette/Vaping Use Never Used 02/24/24 08:45 PHQ-9: PHQ-9 Score PHQ-9: Total score 0 02/24/24 09:11 Depression Screening Interpretation: Negative Thrive Assessment: Date of Thrive Assessment Date Thrive assessed 02/24/24 02/24/24 08:45 Currently or been in a relationship where the following occur: No concerns reported Coding Level of Care Code Est Pt Level 4 (94869) Diagnoses Other specified hypothyroidism E03.8 Chronic GERD K21.9 Hypertension, essential I10 Polyneuropathy G62.9 Morbid obesity due to excess calories E66.01 Vitamin D deficiency E55.9 LFT elevation R79.89 Additional Codes MOMO-7 Assessment Billing - MOMO-7 Assessment Tool: MOMO-7 Assessment 90871 ([id number]) PHQ-9 - 12390 - PHQ-9 Billing: Yes ([id number]) Assessment & Plan Assessment & Plan (1) Other specified hypothyroidism: Code(s): E03.8 - Other specified hypothyroidism Category: Medical (2) Chronic GERD: Code(s): K21.9 - Gastro-esophageal reflux disease without esophagitis Category: Medical (3) Hypertension, essential: Code(s): I10 - Essential (primary) hypertension Category: Medical (4) Polyneuropathy: Code(s): G62.9 - Polyneuropathy, unspecified Category: Medical (5) Morbid obesity due to excess calories: Code(s): E66.01 - Morbid (severe) obesity due to excess calories Category: Medical (6) Vitamin D deficiency: Code(s): E55.9 - Vitamin D deficiency, unspecified Category: Medical (7) LFT elevation: Code(s): R79.89 - Other specified abnormal findings of blood chemistry Category: Medical Plan History - bulleted - The patient is a 63-year-old female presenting for a regular follow-up appointment. - Essential Hypertension: Blood pressure is reported as stable and well- controlled. - Hypervitaminosis B12: Patient previously had elevated vitamin B12 levels, and it was advised to discontinue vitamin B12 supplementation. Vitamin B12 levels were confirmed to be very high in a laboratory test. - Periodic labs required due to ongoing management and health monitoring. Laboratory orders are currently in the system for today. - continue Lasix and Celebrex for arthritis and lower extremity swelling which is helping patient - GERD stable with pantoprazole - hypothyroidism: Continue levothyroxine 100 mcg - morbid obesity, patient is having difficulty losing weight Review of Systems - Cardiovascular: Denies leg or ankle swelling. - General: Reports overall well-being and absence of pain. - Musculoskeletal: Denies joint pain. - Neurological: Denies any symptoms. - General: No fever no chills - Neurological: No headaches no dizziness - Ear nose throat: No sore throat no hearing difficulty no ear pain - Cardiovascular: No syncope, no chest pain, no palpitations - Gastrointestinal: No nausea vomiting or diarrhea - Endocrine: No polyuria polydipsia no heat intolerance - Genitourinary: No dysuria , no blood in urine Physical Exam General: No acute distress HEENT: No acute findings Neck: Supple Respiratory system: Able to talk in full sentences, no audible wheeze cardiovascular: S1-S2 regular in rate and rhythm Gastrointestinal: No pain Extremities: No swelling, no pain JEEP MECHANIC: Alert awake oriented x3 motor sensory intact Skin: Normal turgor Patient Instructions - Proceed to the lab for required blood tests as ordered. - Discontinue vitamin B12 supplementation. - Maintain current hypertension management and continue monitoring. - Return for a follow-up appointment in early May.
[2024-02-24 08:40] VITALS: BP 124/80; PULSE 58; O2SAT 98; BMI 44.3
== END 2024-02-24 09:12 | disposition home or self-care (01) ==
PROVIDERS: PCP Internal Medicine; Visit Provider Internal Medicine
DX: K21.9 Gastro-esophageal reflux disease without esophagitis (principal); E03.8 Other specified hypothyroidism; E66.01 Morbid (severe) obesity due to excess calories; Z68.41 Body mass index [BMI] 40.0-44.9, adult; I10 Essential (primary) hypertension; G62.9 Polyneuropathy, unspecified; E55.9 Vitamin D deficiency, unspecified; R79.89 Other specified abnormal findings of blood chemistry

== ENCOUNTER 2024-05-22 08:43 | Outpatient (AMB) | payer BC, SELFPAY ==
[2024-05-22 08:53] VITALS: BP 120/74; PULSE 74; RESP 17; TEMP 36.6; O2SAT 97; BMI 44.3
--- NOTE | 2024-05-22 08:53 | MHC.PC.OV ---
Vital Signs 05/22/24 08:53 Height 5 ft 2 in Weight 242 lb 4 oz BMI 44.3 BP 120/74 Blood Pressure Location Lt brachial Position Sitting Respiration 17 Pulse 74 Pulse Source Pulse Oximeter Temp 98 F Temp Source Oral Pulse Oximetry (%) 97 Oxygen Delivery Method Room Air Intake Visit Reasons: 4 months f/up Allergies No Known Allergies Allergy (Verified 05/22/24 08:53) Medication List - Last Reconciled 05/22/24 by Isabella Blount MD atenolol 50 mg PO DAILY 90 days celecoxib (Celebrex) 200 mg PO .q am cholecalciferol (vitamin D3) 25 mcg PO DAILY furosemide (Lasix) 20 mg PO DAILY hydrochlorothiazide 12.5 mg PO DAILY 90 days levothyroxine 150 mcg PO DAILY 90 days pantoprazole 40 mg PO DAILY 90 days Tobacco use date assessed: 05/22/24 Fall risk assessment: No Falls in past year Last assessed Fall Risk: 05/22/24 Dental Screening Dental Screen Date: 05/22/24 Did you have a dental visit in the last 12 months?: Yes Did you have a dental problem in the last 6 months where you did not have access to dental care?: No Was dental information given to patient?: Patient has dentist HPI 4 months f/up HPI Details History - The patient is a 64-year-old female presenting for a regular follow-up appointment. - TSH levels were previously abnormal; levothyroxine dosage has since been adjusted. - The patient reported good symptom control of osteoarthritis with Celecoxib, only experiencing mild pain briefly in March. - The blood pressure is stable with Atenolol treatment demonstrated by a reading of 120/74 mmHg. - There are no concerns noted with GERD as reflux is well controlled by medication. Problem List - Hypothyroidism - Hypertension - Gastroesophageal Reflux Disease (GERD) - Osteoarthritis - Hyperlipidemia - morbid obesity with BMI of 44.3 patient is having difficulty losing weight Patient Instructions - Repeat thyroid function tests as ordered and complete them at the adjacent location. - Continue current medications as prescribed. 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 - Return for scheduled follow-up appointment in August. - Engage in lifestyle activities as weather permits, and continue to monitor for any new or worsening symptoms. Review of Systems - General: No fever no chills - Neurological: No headaches no dizziness - Ear nose throat: No sore throat no hearing difficulty no ear pain - Cardiovascular: No syncope, no chest pain, no palpitations - Gastrointestinal: No nausea vomiting or diarrhea - Endocrine: No polyuria polydipsia no heat intolerance - Genitourinary: No dysuria , no blood in urine Physical Exam - General: No acute distress - HEENT: No acute findings - Neck: Supple - Respiratory system: Able to talk in full sentences, no audible wheeze - Cardiovascular: S1-S2 regular in rate and rhythm - Gastrointestinal: No pain - Extremities: No new findings no pitting edema - SUBMARINE DIVER: Alert awake oriented x3 motor sensory intact - Skin: Normal turgor [facility] Medical History Morbid obesity due to excess calories Polyneuropathy Hypertension, essential Chronic GERD COVID-19 Surgical History No pertinent past surgical history Family History Father Hypertension Mother No problems noted. Brother Hypertension Social History Housing: House Alcohol intake: current Alcohol intake frequency: holidays/special occasions only Patient Tobacco Use Status: Never used Tobacco e-Cigarette/Vaping Use: Never Used service: No Current occupational status: employed Cognitive needs: No Hearing needs: No Vision needs: Yes Female Reproductive History Menstrual Age of Menarche: 9 Questionnaire PHQ-9 Over the last 2 weeks, how often have you been bothered by any of the following problems? 66861 - PHQ-9 Billing: Patient declined-do not bill Source: Developed by Drs. Chance Ruiz, Tere Soria, Jeevan Márquez and colleagues, with an educational sami from [employer]. Thrive Questionnaire Date Thrive assessed: 05/22/24 I am a: Patient What is your living situation today?: I have a steady place to live Within the past 12 months, did the food you bought not last and you didn't have the money to get more?: Never true Within the past 12 months, did you worry whether your food would run out before you got money to buy more?: Never true Do you have trouble paying for medicines?: No Do you have trouble getting transportation to medical appointments?: No Do you have trouble paying your heating and electricity bill?: No Do you have trouble taking care of your child, family member or friend?: No Do you have trouble with day-to-day activities such as bathing, preparing meals, shopping, managing finances, etc.?: No Are you currently unemployed and looking for a job?: No Are you interested in more education?: No Please select the resources that you would like help with: None Currently or been in a relationship where the following occur: No concerns reported THRIVE Score: 0 AUDIT C Alcohol Use Questionnaire (AUDIT-C) 1. How often do you have a drink containing alcohol?: 2-4 times a month 2. How many drinks containing alcohol do you have on a typical day when you are drinking?: 1 or 2 3. How often do you have six or more drinks on one occasion?: Never Total Score: 2 Score Reviewed/Action Taken: Yes MOMO-7 AMB Questionnaire MOMO-7 Date MOMO - 7 assessed: 02/24/24 Source: Developed by Drs. Chance Ruiz, Tere Soria, Jeevan Márquez and colleagues, with an educational sami from [employer]. Physical exam (Primary Care) Vital Signs: Last Vital Signs Temp 98 F 05/22/24 08:53 Pulse 74 05/22/24 08:53 Resp 17 05/22/24 08:53 BP 120/74 05/22/24 08:53 Pulse Ox 97 05/22/24 08:53 Oxygen Delivery Method Room Air 05/22/24 08:53 BMI result Body Mass Index 44.3 Tobacco/Smoking Status: Tobacco use Status Tobacco use date assessed 05/22/24 05/22/24 09:00 Patient Tobacco Use Status Never used Tobacco 05/22/24 09:00 e-Cigarette/Vaping Use Never Used 05/22/24 09:00 Thrive Assessment: Date of Thrive Assessment Date Thrive assessed 05/22/24 05/22/24 09:00 Currently or been in a relationship where the following occur: No concerns reported Coding Level of Care Code Est Pt Level 4 (95966) Diagnoses Hypertension, essential I10 Other specified hypothyroidism E03.8 Chronic GERD K21.9 Morbid obesity due to excess calories E66.01 Osteoarthritis involving multiple joints on both sides of body M15.9 Vitamin B12 deficiency E53.8 Vitamin D deficiency E55.9 LFT elevation R79.89 Assessment & Plan Assessment & Plan (1) Hypertension, essential: Code(s): I10 - Essential (primary) hypertension Category: Medical (2) Other specified hypothyroidism: Code(s): E03.8 - Other specified hypothyroidism Category: Medical (3) Chronic GERD: Code(s): K21.9 - Gastro-esophageal reflux disease without esophagitis Category: Medical (4) Morbid obesity due to excess calories: Code(s): E66.01 - Morbid (severe) obesity due to excess calories Category: Medical (5) Osteoarthritis involving multiple joints on both sides of body: Code(s): M15.9 - Polyosteoarthritis, unspecified Category: Medical (6) Vitamin B12 deficiency: Code(s): E53.8 - Deficiency of other specified B group vitamins Category: Medical (7) Vitamin D deficiency: Code(s): E55.9 - Vitamin D deficiency, unspecified Category: Medical (8) LFT elevation: Code(s): R79.89 - Other specified abnormal findings of blood chemistry Category: Medical Plan History - The patient is a 64-year-old female presenting for a regular follow-up appointment. - TSH levels were previously abnormal; levothyroxine dosage has since been adjusted. - The patient reported good symptom control of osteoarthritis with Celecoxib, only experiencing mild pain briefly in March. - The blood pressure is stable with Atenolol treatment demonstrated by a reading of 120/74 mmHg. - There are no concerns noted with GERD as reflux is well controlled by medication. Problem List - Hypothyroidism - Hypertension - Gastroesophageal Reflux Disease (GERD) - Osteoarthritis - Hyperlipidemia - morbid obesity with BMI of 44.3 patient is having difficulty losing weight - total bili slightly elevated Patient Instructions - Repeat thyroid function tests as ordered and complete them at the adjacent location. - Continue current medications as prescribed. 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. - Return for scheduled follow-up appointment in August. - Engage in lifestyle activities as weather permits, and continue to monitor for any new or worsening symptoms. Orders: Orders Complete Blood Count Auto Diff Today E03.8 - Other specified hypothyroidism, E53.8 - Deficiency of other specified B group vitamins, E55.9 - Vitamin D deficiency, unspecified, I10 - Essential (primary) hypertension, K21.9 - Gastro-esophageal reflux disease without esophagitis, R79.89 - Other specified abnormal findings of blood chemistry TSH reflex Free T4 Today E03.8 - Other specified hypothyroidism, E53.8 - Deficiency of other specified B group vitamins, E55.9 - Vitamin D deficiency, unspecified, I10 - Essential (primary) hypertension, K21.9 - Gastro-esophageal reflux disease without esophagitis, R79.89 - Other specified abnormal findings of blood chemistry LDL Cholesterol Direct Today E03.8 - Other specified hypothyroidism, E53.8 - Deficiency of other specified B group vitamins, E55.9 - Vitamin D deficiency, unspecified, I10 - Essential (primary) hypertension, K21.9 - Gastro-esophageal reflux disease without esophagitis, R79.89 - Other specified abnormal findings of blood chemistry Comprehensive Met. Panel Today E03.8 - Other specified hypothyroidism, E53.8 - Deficiency of other specified B group vitamins, E55.9 - Vitamin D deficiency, unspecified, I10 - Essential (primary) hypertension, K21.9 - Gastro-esophageal reflux disease without esophagitis, R79.89 - Other specified abnormal findings of blood chemistry Medications: Refilled celecoxib (Celebrex) take it with food 200 mg PO .q am 90 caps 0RF furosemide (Lasix) 20 mg PO DAILY 90 tabs 0RF
--- OUTSIDE RECORDS SUMMARY | 2024-05-22 09:06 | XMS_ITS | Clinical Summary ---
Author Organization [facility] Address [address] [place] [address] Care Team Providers Care Edm Operator Name Role Phone Unavailable Primary Care Provider Unavailabl e Social History Tobacco Use Types Packs/Day Years Used Date Smoking Tobacco: Never Assessed Comments Unknown Sex and Gender Information Value Date Recorded Sex Assigned at Not on file Legal Sex Female 8:24 AM EST Gender Identity Not on file Sexual Orientation Not on file Plan of Treatment Health Maintenance Due Date Last Done Comments Breast Cancer Screening 1960 DTaP,Tdap,and Td Vaccines (1 - Tdap) 1977 Pneumococcal Vaccine: 50+ Ye ars (1 of 1 - PCV) 2008 Zoster Vaccines (1 of 2) 2008 COVID-19 Vaccine ( - 2023-2 5 season) 2023 Influenza Vaccine (#1) 2023 RSV Immunization Patients 60 + Years Old (1 - 1-dose 75+ series) 2033 HIB Vaccines Aged Out No longer eligi ble based on patient's age to complete this topic HPV Vaccines Aged Out No longer eligi ble based on patient's age to complete this topic Hepatitis A Vaccines Aged Out No long er eligible based on patient's age to complete this topic Hepatitis B Vaccines Aged Out No long er eligible based on patient's age to complete this topic IPV Vaccines Aged Out No longer eligi ble based on patient's age to complete this topic MMR Vaccines Aged Out No longer eligi ble based on patient's age to complete this topic Meningococcal ACWY Vaccine Aged Out N o longer eligible based on patient's age to complete this topic Meningococcal B Vacine Aged Out No lo nger eligible based on patient's age to complete this topic RSV Immunization Patients Un alexandru 20 months Aged Out No longer eligible b ased on patient's age to complete this topic Varicella Vaccines Aged Out No longer eligible based on patient's age to complete this topic Advance Directives Documents on File Type Date Recorded 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
== END 2024-05-22 09:12 | disposition home or self-care (01) ==
LOC: HO.HMCC 08:43
PROVIDERS: PCP Internal Medicine; Visit Provider Internal Medicine
DX: I10 Essential (primary) hypertension (principal); E03.8 Other specified hypothyroidism; E66.01 Morbid (severe) obesity due to excess calories; Z68.41 Body mass index [BMI] 40.0-44.9, adult; K21.9 Gastro-esophageal reflux disease without esophagitis; M15.9 Polyosteoarthritis, unspecified; E53.8 Deficiency of other specified B group vitamins; E55.9 Vitamin D deficiency, unspecified; R79.89 Other specified abnormal findings of blood chemistry

== ENCOUNTER 2024-05-22 08:43 | Outpatient (REF) | payer BC, SELFPAY ==
--- OUTSIDE RECORDS SUMMARY | 2024-05-22 10:15 | XMS_ITS | Clinical Summary ---
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
[2024-05-22 10:26] LABS: MANUAL DIFF FLAG NO
[2024-05-22 10:44] LABS: Basophils Percent Auto 0.6 % (0-2); Eosinophils Absolute Auto 0.4 X10*3/uL (0.0-0.4); Eosinophils Percent Auto 7.1 % (0-4); Imm Gran Abs Auto 0.02 X10*3/uL (0.00-0.03); Imm Gran Pct Auto 0.4 % (0.0-0.4); Lymphocytes Absolute Auto 1.1 X10*3/uL (1.2-4.9); Lymphocytes Percent Auto 20.6 % (20-40); Mean Corpuscular HGB Conc 34.1 g/dl (31.0-35.0); Mean Corpuscular Hemoglobin 33.7 pg (27.0-33.0); Mean Corpuscular Volume 98.6 fL (80.0-98.0); Mean Platelet Volume 9.8 fL (9.4-12.3); Monocytes Absolute Auto 0.5 X10*3/uL (0.1-1.2); Monocytes Percent Auto 8.9 % (2-11); Neutrophils Absolute Auto 3.4 x10*3/uL (2.0-8.3); Neutrophils Percent Auto 62.4 % (45-73); Platelet Count 241 X10*3/uL (160-400); Red Blood Count 4.16 X10*6/uL (4.20-5.50); Red Cell Distribution Width 12.1 % (11.0-16.0); White Blood Count 5.4 X10*3/uL (4.8-10.8)
[2024-05-22 11:25] LABS: Alanine Aminotransferase 9 U/L (0-31); Albumin Level 3.9 g/dL (3.5-5.0); Alkaline Phosphatase 85 U/L (39-117); Anion Gap 9 (12-20); Aspartate Amino Transferase 23 U/L (5-31); Blood Urea Nitrogen 25 mg/dL (9-16); Carbon Dioxide 27 mmol/L (22-29); Chloride 108 mmol/L (96-108); Estimated Glomerular Filt Rate > 60; Glucose Random 104 mg/dL (60-115); Potassium 3.8 mmol/L (3.3-5.1); Sodium 140 mmol/L (135-145); Total Protein 7.4 g/dL (6.5-8.0)
[2024-05-22 12:34] LABS: TSH reflex Free T4 0.01 uIU/mL (0.32-4.0)
[2024-05-22 13:52] LABS: Free T4 (Free Thyroxine) 1.76 ng/dL (0.71-1.85)
[2024-05-23 16:05] LABS: LDL Cholesterol Direct 113 mg/dL (<100)
== END 2024-05-22 08:44 | disposition home or self-care (01) ==
LOC: HO.HMGCLDS 08:43
PROVIDERS: PCP Internal Medicine; Visit Provider Internal Medicine
DX: E03.8 Other specified hypothyroidism (principal); K21.9 Gastro-esophageal reflux disease without esophagitis; E53.8 Deficiency of other specified B group vitamins; E55.9 Vitamin D deficiency, unspecified; R79.89 Other specified abnormal findings of blood chemistry; I10 Essential (primary) hypertension
CPT/HCPCS: 36415; 80053; 83721; 84439; 84443; 85025

== ENCOUNTER 2024-08-31 09:44 | Outpatient (REF) | payer BC, SELFPAY ==
[2024-08-31 14:42] LABS: Alanine Aminotransferase 17 U/L (0-31); Albumin Level 4.2 g/dL (3.5-5.0); Alkaline Phosphatase 97 U/L (39-117); Anion Gap 11 (12-20); Aspartate Amino Transferase 35 U/L (5-31); Blood Urea Nitrogen 17 mg/dL (9-16); Calcium 9.8 mg/dL (8.4-10.2); Carbon Dioxide 30 mmol/L (22-29); Chloride 103 mmol/L (96-108); Estimated Glomerular Filt Rate 55; Potassium 3.1 mmol/L (3.3-5.1); Sodium 141 mmol/L (135-145); Total Protein 7.7 g/dL (6.5-8.0)
[2024-08-31 16:30] LABS: Free T4 (Free Thyroxine) 1.84 ng/dL (0.71-1.85)
== END 2024-08-31 09:45 | disposition home or self-care (01) ==
LOC: HO.HMGCLDS 09:44
PROVIDERS: PCP Internal Medicine; Visit Provider Internal Medicine
DX: Z00.01 Encounter for general adult medical examination with abnormal findings (principal); I10 Essential (primary) hypertension; E03.8 Other specified hypothyroidism; K21.9 Gastro-esophageal reflux disease without esophagitis; E66.01 Morbid (severe) obesity due to excess calories; Z68.41 Body mass index [BMI] 40.0-44.9, adult; M15.9 Polyosteoarthritis, unspecified; Z79.899 Other long term (current) drug therapy
CPT/HCPCS: 36415; 80053; 84439; 84443

== ENCOUNTER 2024-08-31 09:44 | Outpatient (AMB) | payer BC, SELFPAY ==
[2024-08-31 09:52] VITALS: BP 118/82; PULSE 60; RESP 16; O2SAT 96; BMI 43.3
--- NOTE | 2024-08-31 09:52 | MHC.PC.OV ---
Vital Signs 08/31/24 09:52 Height 5 ft 2 in Weight 237 lb BMI 43.3 BP 118/82 Blood Pressure Location Lt brachial Position Sitting Respiration 16 Pulse 60 Pulse Source Pulse Oximeter Pulse Oximetry (%) 96 Oxygen Delivery Method Room Air Intake Visit Reasons: Annual PE Library Media Technician Required: No Accompanied by: Self / Same As Patient Allergies No Known Allergies Allergy (Verified 08/31/24 09:52) Medication List - Last Reconciled 08/31/24 by Isabella Blount MD atenolol 50 mg PO DAILY 90 days celecoxib (Celebrex) 200 mg PO .q am cholecalciferol (vitamin D3) 25 mcg PO DAILY furosemide (Lasix) 20 mg PO DAILY hydrochlorothiazide 12.5 mg PO DAILY 90 days levothyroxine 137 mcg PO DAILY 90 days pantoprazole 40 mg PO DAILY 90 days Tobacco use date assessed: 05/22/24 Fall risk assessment: No Falls in past year Last assessed Fall Risk: 08/31/24 Dental Screening Dental Screen Date: 05/22/24 HPI Annual PE HPI Details Physical exam - The patient is a 64-year-old female presenting for a routine wellness examination. - Past medical history includes hypertension, osteoarthritis, hypothyroidism, and GERD. - She reports her blood pressure being well-controlled, with consistent medication adherence. - Thyroid levels were noted to be low during the last assessment in May, following which medication adjustments were made. - There are no specific symptoms related to GERD currently, and the condition appears to be managed with pantoprazole. - The patient experiences occasional knee cracking at night, without associated pain. - She denies any concerns regarding her balance, though she tends to be cautious due to a prior right lower leg fracture. - Seasonal allergies are causing morning sneezing, though symptoms subside shortly after the initial onset and do not significantly impact daily function. - The patient has not experienced skin rashes or other dermatological concerns, apart from mild itching which resembles mosquito bites. Medical History: - Hypertension - Osteoarthritis - Hypothyroidism - Gastroesophageal Reflux Disease (GERD) - Seasonal Allergies - morbid obesity Social History: - The patient has experienced a past right leg fracture and is cautious with movement but reports maintaining a good functional level. - She denies any use of substances or unusual nutritional habits. - Engages in regular movement with care due to previous injury. Health Maintenance - Thyroid function test required for reassessment due to previous low levels. - Mammogram reportedly scheduled in October. - Encouraged to consider Cologuard as an alternate colorectal screening method. She does not want colonoscopy - do not want OBGYN visit Medications - Atenolol, 50 mg, for hypertension - Celecoxib (Celebrex) for osteoarthritis - Vitamin D supplementation - Hydrochlorothiazide for hypertension - Levothyroxine for hypothyroidism - Pantoprazole for GERD - Furosemide (Lasix), a diuretic, taken daily as a water pill Diagnostic results - Labs (May): CBC normal, electrolytes normal, kidney function normal, blood glucose normal, liver enzymes normal, cholesterol well controlled, thyroid low (adjusted previously). Patient Instructions - Repeat thyroid test to monitor levels. - Consider completing the Cologuard test for colorectal screening at home. Order placed - Continue current medications as prescribed. - Monitor for any new symptoms and seek care if needed. - return in 4 months for follow-up appointment Review of Systems - General: No fever no chills - Neurological: No headaches no dizziness - Ear nose throat: No sore throat no hearing difficulty no ear pain - Cardiovascular: No syncope, no chest pain, no palpitations - Gastrointestinal: No nausea vomiting or diarrhea - Endocrine: No polyuria polydipsia no heat intolerance - Genitourinary: No dysuria - Skin: No new complaints Physical Exam General: Cooperative, morbidly obese, comfortable, no acute distress Orientation: Patient oriented x3 Head: Normal to inspection Ears: Within normal limit visually Nose: Normal external nose present Face and sinus: Normal facial exam Eyes: Appearance normal, extraocular movement intact pupils reactive Neck: Normal visual inspection and supple Respiratory: Normal respiratory effort and able to speak in complete sentences. Clear to auscultation, no stridor Cardiovascular: S1 and S2 RRR Breast exam declined GI: Normal to inspection. Soft to palpation and nontender Skin: Turgor normal, no acute findings, slight itching noted, possibly due to mosquito bites Neuro: Patient oriented x3, motor sensory intact, balance intact, tandem failed Extremities: Normal to inspection, knee cracks occasionally when turning at night but no pain reported, range of motion intact with slight limitation due to body habitus [facility] Medical History Morbid obesity due to excess calories Polyneuropathy Hypertension, essential Chronic GERD COVID-19 Surgical History No pertinent past surgical history Family History Father Hypertension Mother No problems noted. Brother Hypertension Social History Housing: House Alcohol intake: current Alcohol intake frequency: holidays/special occasions only Patient Tobacco Use Status: Never used Tobacco e-Cigarette/Vaping Use: Never Used service: No Current occupational status: employed Cognitive needs: No Hearing needs: No Vision needs: Yes Female Reproductive History Menstrual Age of Menarche: 9 Questionnaire Thrive Questionnaire Date Thrive assessed: 08/31/24 I am a: Patient What is your living situation today?: I have a steady place to live Within the past 12 months, did the food you bought not last and you didn't have the money to get more?: Never true Within the past 12 months, did you worry whether your food would run out before you got money to buy more?: Never true Do you have trouble paying for medicines?: No Do you have trouble getting transportation to medical appointments?: No Do you have trouble paying your heating and electricity bill?: No Do you have trouble taking care of your child, family member or friend?: No Do you have trouble with day-to-day activities such as bathing, preparing meals, shopping, managing finances, etc.?: No Are you currently unemployed and looking for a job?: No Are you interested in more education?: No Please select the resources that you would like help with: None Currently or been in a relationship where the following occur: No concerns reported THRIVE Score: 0 MOMO-7 AMB Questionnaire MOMO-7 Date MOMO - 7 assessed: 02/24/24 Source: Developed by Drs. Chance Ruiz, Tere Soria, Jeevan Márquez and colleagues, with an educational sami from [employer]. Physical exam (Primary Care) Vital Signs: Last Vital Signs Pulse 60 08/31/24 09:52 Resp 16 08/31/24 09:52 BP 118/82 08/31/24 09:52 Pulse Ox 96 08/31/24 09:52 Oxygen Delivery Method Room Air 08/31/24 09:52 BMI result Body Mass Index 43.3 Tobacco/Smoking Status: Tobacco use Status Tobacco use date assessed 05/22/24 08/31/24 09:53 Patient Tobacco Use Status Never used Tobacco 08/31/24 09:53 e-Cigarette/Vaping Use Never Used 08/31/24 09:53 Thrive Assessment: Date of Thrive Assessment Date Thrive assessed 08/31/24 08/31/24 09:53 Currently or been in a relationship where the following occur: No concerns reported Coding Level of Care Code Est Pt Level 3 (00291) Est Pt Prev Care >65y(98178) Diagnoses Encounter for general adult medical examination with abnormal findings Z00.01 Other specified hypothyroidism E03.8 Hypertension, essential I10 Chronic GERD K21.9 Morbid obesity due to excess calories E66.01 Osteoarthritis involving multiple joints on both sides of body M15.9 Assessment & Plan Assessment & Plan (1) Encounter for general adult medical examination with abnormal findings: Code(s): Z00.01 - Encounter for general adult medical examination with abnormal findings Category: Medical (2) Other specified hypothyroidism: Code(s): E03.8 - Other specified hypothyroidism Category: Medical (3) Hypertension, essential: Code(s): I10 - Essential (primary) hypertension Category: Medical (4) Chronic GERD: Code(s): K21.9 - Gastro-esophageal reflux disease without esophagitis Category: Medical (5) Morbid obesity due to excess calories: Code(s): E66.01 - Morbid (severe) obesity due to excess calories Category: Medical (6) Osteoarthritis involving multiple joints on both sides of body: Code(s): M15.9 - Polyosteoarthritis, unspecified Category: Medical Plan Physical exam - The patient is a 64-year-old female presenting for a routine wellness examination. - Past medical history includes hypertension, osteoarthritis, hypothyroidism, and GERD. - She reports her blood pressure being well-controlled, with consistent medication adherence. - Thyroid levels were noted to be low during the last assessment in May, following which medication adjustments were made. - There are no specific symptoms related to GERD currently, and the condition appears to be managed with pantoprazole. - The patient experiences occasional knee cracking at night, without associated pain. - She denies any concerns regarding her balance, though she tends to be cautious due to a prior right lower leg fracture. - Seasonal allergies are causing morning sneezing, though symptoms subside shortly after the initial onset and do not significantly impact daily function. - The patient has not experienced skin rashes or other dermatological concerns, apart from mild itching which resembles mosquito bites. Medical History: - Hypertension - Osteoarthritis - Hypothyroidism - Gastroesophageal Reflux Disease (GERD) - Seasonal Allergies - morbid obesity Social History: - The patient has experienced a past right leg fracture and is cautious with movement but reports maintaining a good functional level. - She denies any use of substances or unusual nutritional habits. - Engages in regular movement with care due to previous injury. Health Maintenance - Thyroid function test required for reassessment due to previous low levels. - Mammogram reportedly scheduled in October. - Encouraged to consider Cologuard as an alternate colorectal screening method. She does not want colonoscopy - do not want OBGYN visit Medications - Atenolol, 50 mg, for hypertension - Celecoxib (Celebrex) for osteoarthritis - Vitamin D supplementation - Hydrochlorothiazide for hypertension - Levothyroxine for hypothyroidism - Pantoprazole for GERD - Furosemide (Lasix), a diuretic, taken daily as a water pill Diagnostic results - Labs (May): CBC normal, electrolytes normal, kidney function normal, blood glucose normal, liver enzymes normal, cholesterol well controlled, thyroid low (adjusted previously). Patient Instructions - Repeat thyroid test to monitor levels. - Consider completing the Cologuard test for colorectal screening at home. Order placed - Continue current medications as prescribed. - Monitor for any new symptoms and seek care if needed. - return in 4 months for follow-up appointment Orders: Orders TSH reflex Free T4 Today E03.8 - Other specified hypothyroidism, I10 - Essential (primary) hypertension TSH reflex Free T4 3 Months E03.8 - Other specified hypothyroidism, E66.01 - Morbid (severe) obesity due to excess calories, I10 - Essential (primary) hypertension Comprehensive Met. Panel 3 Months E03.8 - Other specified hypothyroidism, E66.01 - Morbid (severe) obesity due to excess calories, I10 - Essential (primary) hypertension Comprehensive Met. Panel Today E03.8 - Other specified hypothyroidism, I10 - Essential (primary) hypertension Vitamin D 25-OH (D2 and D3) 3 Months E03.8 - Other specified hypothyroidism, E66.01 - Morbid (severe) obesity due to excess calories, I10 - Essential (primary) hypertension Vitamin B12 3 Months E03.8 - Other specified hypothyroidism, E66.01 - Morbid (severe) obesity due to excess calories, I10 - Essential (primary) hypertension Referrals Cologuard Test Z12.11 - Encounter for screening for malignant neoplasm of colon
--- OUTSIDE RECORDS SUMMARY | 2024-08-31 10:03 | XMS_ITS | Clinical Summary ---
Author Organization [facility] [address] ity Address [address] [place] [address] Care Team Providers Care Therapeutic Mentor Name Role Phone Unavailable Primary Care Provider [...] 2023-2 5 season) 2023 Influenza Vaccine (#1) 2024 RSV Immunization Adult Patie nts (1 - 1-dose 75+ series) 2033 HIB [...] age to complete this topic Meningococcal B Vaccine Aged Out No l onger eligible based on patient's age to complete this topic RSV Immunization Patients Un alexandru 20 months Aged Out No longer eligible b ased on patient's age to complete this topic Varicella Vaccines Aged Out No longer eligible based on patient's age to complete this topic Advance Directives Documents on File Type Date Recorded Patient Beam Doffer Expl anation Health Care Decision (hx) 02/05/2020 AD SHERYL DIRECTIVE
== END 2024-08-31 10:12 | disposition home or self-care (01) ==
LOC: HO.HMCC 09:45
PROVIDERS: PCP Internal Medicine; Visit Provider Internal Medicine
DX: Z00.01 Encounter for general adult medical examination with abnormal findings (principal); I10 Essential (primary) hypertension; E66.01 Morbid (severe) obesity due to excess calories; Z68.41 Body mass index [BMI] 40.0-44.9, adult; E03.8 Other specified hypothyroidism; K21.9 Gastro-esophageal reflux disease without esophagitis; M15.9 Polyosteoarthritis, unspecified

== ENCOUNTER 2024-10-10 09:13 | Outpatient (AMB) | payer BC, SELFPAY ==
--- NOTE | 2024-10-10 09:15 | A.OFFPC_ITS ---
Vital Signs 10/10/24 09:17 Height 5 ft 2 in Weight 232 lb BMI 42.4 BP 110/72 Blood Pressure Location Rt brachial Position Sitting Pulse 62 Pulse Source Pulse Oximeter Temp 98.6 F Temp Source Oral Pulse Oximetry (%) 97 Intake Visit Reasons: Sore Feet Allergies No Known Allergies Allergy (Verified 10/10/24 09:17) Medication List - Last Reconciled 10/10/24 by Isabella Blount MD atenolol 50 mg PO DAILY 90 days celecoxib (Celebrex) 200 mg PO .q am cholecalciferol (vitamin D3) 25 mcg PO DAILY furosemide (Lasix) 20 mg PO DAILY hydrochlorothiazide 12.5 mg PO DAILY 90 days levothyroxine 112 mcg PO DAILY 90 days pantoprazole 40 mg PO DAILY 90 days Tobacco use date assessed: 05/22/24 Fall risk assessment: No Falls in past year Last assessed Fall Risk: 10/10/24 Dental Screening Dental Screen Date: 05/22/24 HPI Sore Feet HPI Details Chief Complaint The patient presents with swelling and pain in the left foot. History of Present Illness The patient is a 64-year-old female presenting with foot swelling and pain. Foot swelling and pain: - The patient reports recurrent swelling and pain in her left foot for about two weeks. - The pain initially resolved significan tly last Tuesday but worsened subsequently on Tuesday or Tuesday. - Pain worsens upon initiating movement in the morning and improves throughout the day. - The patient experiences a burning sens ation but reports improvement with Celebrex. - There is a history of swelling that do es not extend beyond the foot. - The swelling is noted to possibly rela te to vascular issues; the patient is taking furosemide for this condition . - There has been a recent change in thyr oid medication, which was adjusted and lowered on August 31. Medical History: - Osteoarthritis - Vascular insufficiency (managed with f urosemide) - Thyroid dysfunction (recent medication adjustment) Diagnostic Results: - Kidney filtration rate: 55 checked Aug y of this year, will repeat again in one week Problem List - Osteoarthritis - Vascular insufficiency - Swelling and pain in the left foot - reduced GFR Patient Instructions - Have an x-ray of the foot done. - Take Tylenol for arthritis up to two t imes a day, especially in the morning, and assess its efficacy. - try not to take Celebrex due to reduc e GFR. - Monitor kidney function regularly have labs done in 1-2 wks Review of Systems - General: No fever no chills - Neurological: No headaches no dizziness - Ear nose throat: No sore throat no hearing difficulty no ear pain - Cardiovascular: No syncope, no chest pain, no palpitations - Gastrointestinal: No nausea vomiting or diarrhea - Endocrine: No polyuria polydipsia no heat intolerance - Genitourinary: No dysuria , no blood in urine Physical Exam General: No acute distress HEENT: No acute findings Neck: Supple Respiratory system: Able to talk in full sentences, no audible wheeze Cardiovascular: S1-S2 regular in rate and rhythm Gastrointestinal: No pain Extremities: Swelling in the left foot, toes are warm, and nails are pink, no pain with palpation, no calf pain 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 Brother Hypertension Social History Housing: House Alcohol intake: current Alcohol intake frequency: holidays/special occasions only Patient Tobacco Use Status: Never used Tobacco e-Cigarette/Vaping Use: Never Used service: No Current occupational status: employed Cognitive needs: No Hearing needs: No Vision needs: Yes Female Reproductive History Menstrual Age of Menarche: 9 Questionnaire Thrive Questionnaire Date Thrive assessed: 02/24/24 I am a: Patient What is your living situation today?: I have a steady place to live Within the past 12 months, did the food you bought not last and you didn't have the money to get more?: Never true Within the past 12 months, did you worry whether your food would run out before you got money to buy more?: Never true Do you have trouble paying for medicines?: No Do you have trouble getting transportation to medical appointments?: No Do you have trouble paying your heating and electricity bill?: No Do you have trouble taking care of your child, family member or friend?: No Do you have trouble with day-to-day activities such as bathing, preparing meals, shopping, managing finances, etc.?: No Are you currently unemployed and looking for a job?: No Are you interested in more education?: No Please select the resources that you would like help with: None Currently or been in a relationship where the following occur: No concerns reported THRIVE Score: 0 MOMO-7 AMB Questionnaire MOMO-7 Date MOMO - 7 assessed: 02/24/24 Source: Developed by Drs. Chance Ruiz, Tere Soria, Jeevan Márquez and colleagues, with an educational sami from [employer]. Physical exam (Primary Care) Vital Signs: Last Vital Signs Temp 98.6 F 10/10/24 09:17 Pulse 62 10/10/24 09:17 BP 110/72 10/10/24 09:17 Pulse Ox 97 10/10/24 09:17 BMI result Body Mass Index 42.4 Tobacco/Smoking Status: Tobacco use Status Tobacco use date assessed 05/22/24 10/10/24 09:15 Patient Tobacco Use Status Never used Tobacco 10/10/24 09:15 e-Cigarette/Vaping Use Never Used 10/10/24 09:15 Thrive Assessment: Date of Thrive Assessment Date Thrive assessed 02/24/24 10/10/24 09:15 Currently or been in a relationship where the following occur: No concerns reported Coding Level of Care Code Est Pt Level 3 (86455) Diagnoses Foot pain, left M79.672 Other specified hypothyroidism E03.8 CKD stage 3a, GFR 45-59 ml/min N18.31 Assessment & Plan Assessment & Plan (1) Foot pain, left: Code(s): M79.672 - Pain in left foot Category: Medical (2) Other specified hypothyroidism: Code(s): E03.8 - Other specified hypothyroidism Category: Medical (3) CKD stage 3a, GFR 45-59 ml/min: Code(s): N18.31 - Chronic kidney disease, stage 3a Category: Medical Plan Chief Complaint The patient presents with swelling and pain in the left foot. History of Present Illness The patient is a 64-year-old female presenting with foot swelling and pain. Foot swelling and pain: - The patient reports recurrent swelling and pain in her left foot for about two weeks. - The pain initially resolved significantly last Tuesday but worsened subsequently on Tuesday or Tuesday. - Pain worsens upon initiating movement in the morning and improves throughout the day. - The patient experiences a burning sensation but reports improvement with Celebrex. - There is a history of swelling that does not extend beyond the foot. - The swelling is noted to possibly relate to vascular issues; the patient is taking furosemide for this condition . - There has been a recent change in thyroid medication, which was adjusted and lowered on August 31. Medical History: - Osteoarthritis - Vascular insufficiency (managed with furosemide) - Thyroid dysfunction (recent medication adjustment) Diagnostic Results: - Kidney filtration rate: 55 checked August of this year, will repeat again in one week Problem List - Osteoarthritis - Vascular insufficiency - Swelling and pain in the left foot - reduced GFR Patient Instructions - Have an x-ray of the foot done. - Take Tylenol for arthritis up to two times a day, especially in the morning, and assess its efficacy. - try not to take Celebrex due to reduce GFR. - Monitor kidney function regularly have labs done in 1-2 wks Orders: Orders Basic Metabolic Panel Today N18.31 - Chronic kidney disease, stage 3a XR foot LT 2V Today M79.672 - Pain in left foot TSH reflex Free T4 Today E03.8 - Other specified hypothyroidism Medications: New acetaminophen ER (Tylenol Arthritis Pain) 650 mg PO Q12H PRN 90 tabs 0RF pain
[2024-10-10 09:17] VITALS: BP 110/72; PULSE 62; TEMP 37; O2SAT 97; BMI 42.4
--- OUTSIDE RECORDS SUMMARY | 2024-10-10 09:55 | XMS_ITS | Clinical Summary ---
Author Organization [facility] ity Address [address] [place] [address] Care Team Providers Care Towel Rolling Machine Operator Name Role Phone Unavailable Primary Care [...] Vaccine ( - 2023-2 5 season) 2023 Depression Screening 02/22/2024 Influenza Vaccine (#1) 2024 RSV Immunization Adult [...] Documents on File Type Date Recorded Patient Child Protective Services Specialist Expl anation Health Care Decision (hx) 02/05/2020 AD SHERYL DIRECTIVE
== END 2024-10-10 10:33 | disposition home or self-care (01) ==
LOC: HO.HMCC 09:13
PROVIDERS: Visit Provider Internal Medicine
DX: M79.672 Pain in left foot (principal); E03.8 Other specified hypothyroidism; N18.31 Chronic kidney disease, stage 3a

== ENCOUNTER 2024-10-10 09:13 | Outpatient (REF) | payer BC, SELFPAY ==
--- NOTE | ~2024-10-10 | XR_ITS ---
EXAMINATION: XR FOOT, LEFT CLINICAL INFORMATION: M79.672 - Pain in left foot COMPARISON: None available. TECHNIQUE: AP, lateral, and oblique views of the left foot. FINDINGS: There is osteopenia involving second and fifth metatarsal heads. Joint spaces are preserved. There is a possible small erosion with overhanging edges involving the lateral first metatarsal head. There is short linear soft tissue calcification along the plantar lateral neck of the fifth metatarsal. There is a small plantar calcaneal enthesophyte. XR/XR foot LT 2V IMPRESSION: There is osteopenia involving the second-fifth metatarsal heads and possible small marginal erosion with overhanging edges involving the lateral first metatarsal head. This raises question of inflammatory arthropathy such as gout or rheumatoid arthritis. Electronically signed by: Trav Joseph MD 10/10/2024 10:36 AM EDT
[2024-10-10 16:09] LABS: Anion Gap 16 (12-20); Blood Urea Nitrogen 24 mg/dL (9-16); Calcium 10.3 mg/dL (8.4-10.2); Carbon Dioxide 25 mmol/L (22-29); Chloride 100 mmol/L (96-108); Estimated Glomerular Filt Rate 45; Potassium 3.6 mmol/L (3.3-5.1); Sodium 137 mmol/L (135-145)
[2024-10-10 17:10] LABS: Free T4 (Free Thyroxine) 1.77 ng/dL (0.71-1.85)
== END 2024-10-10 09:14 | disposition home or self-care (01) ==
LOC: HO.HMGCX 09:13
PROVIDERS: PCP Internal Medicine; Visit Provider Internal Medicine
DX: M79.672 Pain in left foot (principal); E03.8 Other specified hypothyroidism; N18.31 Chronic kidney disease, stage 3a
CPT/HCPCS: 36415; 73620; 80048; 84439; 84443

== ENCOUNTER → 2024-10-10 09:56 | Outpatient (BNV) | payer BC, SELFPAY | PROVIDERS: PCP Internal Medicine; Visit Provider Radiology Diagnostic Radiology | DX: M85.872 Other specified disorders of bone density and structure, left ankle and foot (principal) | CPT/HCPCS: 73620 ==

== ENCOUNTER 2024-10-23 09:01 | Outpatient (REF) | payer BC, SELFPAY ==
--- OUTSIDE RECORDS SUMMARY | 2024-10-23 09:50 | XMS_ITS | Clinical Summary ---
Author Organization [facility] ity Address [address] [place] [address] Care Team Providers Care Valet Runner Name Role Phone Unavailable Primary Care Provider [...] 2008 Zoster Vaccines (1 of 2) 2008 Depression Screening 02/22/2024 COVID-19 Vaccine (1 - 2023-2 5 season) 2024 Influenza Vaccine (#1) 2024 RSV Immunization Adult [...] Documents on File Type Date Recorded Patient Highway Research Engineer Expl anation Health Care Decision (hx) 02/05/2020 AD SHERYL DIRECTIVE
[2024-10-23 12:02] LABS: Uric Acid 12.0 mg/dL (2.4-5.7)
== END 2024-10-23 09:02 | disposition home or self-care (01) ==
LOC: HO.HMGCLDS 09:01
PROVIDERS: PCP Internal Medicine; Visit Provider Internal Medicine
DX: Z01.84 Encounter for antibody response examination (principal); M79.672 Pain in left foot; R76.8 Other specified abnormal immunological findings in serum; R93.6 Abnormal findings on diagnostic imaging of limbs
CPT/HCPCS: 36415; 84550; 86225; 86431

== ENCOUNTER 2025-01-02 08:11 | Outpatient (REF) | payer BC, SELFPAY ==
--- OUTSIDE RECORDS SUMMARY | 2025-01-02 09:16 | XMS_ITS | Clinical Summary ---
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
[2025-01-02 10:55] LABS: MANUAL DIFF FLAG NO
[2025-01-02 11:05] LABS: Hematocrit 47.1 % (37.0-47.0); Hemoglobin 16.0 g/dl (12.0-16.0); Imm Gran Abs Auto 0.04 X10*3/uL (0.00-0.03); Imm Gran Pct Auto 0.4 % (0.0-0.4); Lymphocytes Absolute Auto 2.0 X10*3/uL (1.2-4.9); Mean Corpuscular HGB Conc 34.0 g/dl (31.0-35.0); Mean Corpuscular Hemoglobin 31.7 pg (27.0-33.0); Mean Corpuscular Volume 93.3 fL (80.0-98.0); NRBC Abs Auto 0.000 X10*3/uL (0.0-0.012); NRBC Pct Auto 0.0 /100WBC (0.0-0.2); Platelet Count 340 X10*3/uL (160-400); Red Blood Count 5.05 X10*6/uL (4.20-5.50); White Blood Count 9.4 X10*3/uL (4.8-10.8)
[2025-01-02 12:20] LABS: Vitamin B12 753 pg/mL (200-900)
[2025-01-02 13:04] LABS: Alanine Aminotransferase 16 U/L (0-31); Albumin Level 4.5 g/dL (3.5-5.0); Alkaline Phosphatase 88 U/L (39-117); Anion Gap 19 (12-20); Aspartate Amino Transferase 36 U/L (5-31); Blood Urea Nitrogen 38 mg/dL (9-16); Calcium 10.6 mg/dL (8.4-10.2); Carbon Dioxide 33 mmol/L (22-29); Chloride 87 mmol/L (96-108); Estimated Glomerular Filt Rate 36; Potassium 2.2 mmol/L (3.3-5.1); Sodium 137 mmol/L (135-145); Total Protein 8.6 g/dL (6.5-8.0); Uric Acid 9.3 mg/dL (2.4-5.7)
[2025-01-02 14:07] LABS: Free T4 (Free Thyroxine) 2.04 ng/dL (0.71-1.85)
== END 2025-01-02 08:12 | disposition home or self-care (01) ==
LOC: HO.HMGCLDS 08:11
PROVIDERS: PCP Internal Medicine; Visit Provider Internal Medicine
DX: Z23 Encounter for immunization (principal); E03.8 Other specified hypothyroidism; E53.8 Deficiency of other specified B group vitamins; K21.9 Gastro-esophageal reflux disease without esophagitis; I12.9 Hypertensive chronic kidney disease with stage 1 through stage 4 chronic kidney disease, or unspecified chronic kidney disease; N18.31 Chronic kidney disease, stage 3a; Z79.890 Hormone replacement therapy; Z79.899 Other long term (current) drug therapy
CPT/HCPCS: 36415; 80053; 82607; 84439; 84443; 84550; 85025; 90471; 90715

== ENCOUNTER 2025-01-02 08:11 | Outpatient (AMB) | payer BC, SELFPAY ==
--- NOTE | 2025-01-02 08:15 | MHC.PC.OV ---
Vital Signs 01/02/25 08:16 Height 5 ft 2 in Weight 206 lb BMI 37.7 BP 108/70 Blood Pressure Location Rt brachial Position Sitting Pulse 79 Pulse Source Pulse Oximeter Pulse Oximetry (%) 100 Intake Visit Reasons: 4 month follow up Allergies No Known Allergies Allergy (Verified 01/02/25 08:16) Medication List - Last Reconciled 01/02/25 by Isabella Blount MD acetaminophen ER (Tylenol Arthritis Pain) 650 mg PO Q12H PRN allopurinol 100 mg PO DAILY atenolol 50 mg PO DAILY 90 days celecoxib (Celebrex) 200 mg PO .q am cholecalciferol (vitamin D3) 25 mcg PO DAILY furosemide 20 mg PO DAILY 90 days hydrochlorothiazide 12.5 mg PO DAILY 90 days levothyroxine (Synthroid) 88 mcg PO DAILY pantoprazole 40 mg PO DAILY 90 days Tobacco use date assessed: 05/22/24 Fall risk assessment: No Falls in past year Last assessed Fall Risk: 01/02/25 Dental Screening Dental Screen Date: 05/22/24 HPI 4 month follow up HPI Details History of Present Illness The patient is a 64 year old female presenting for a regular follow-up appointment for chronic condition management. Hypothyroidism: - Thyroid medication was adjusted in September. - The patient is currently taking levothyroxine 88 mcg. Hyperuricemia and Gout: - A lab test in October revealed a very high uric acid level. - She is taking allopurinol to prevent gout inflammation. Hypertension: - Her blood pressure is currently low at 108/70 mmHg. - The patient denies any dizziness or lightheadedness. - She takes atenolol for blood pressure. I am stopping hydrochlorothiazide 12.5 mg Xerostomia: - The patient has been experiencing dry mouth for the last four to five weeks. - It occurs in the morning and throughout the night, prompting her to keep a glass of water at her bedside. - She uses cough drops or gum to manage symptoms during the day. - The symptom is reportedly not bothersome to her. Constipation: - The patient reports occasional constipation. - She manages this by drinking half a glass of prune juice every other day, which she states resolves the issue. Medications: - Levothyroxine 88 mcg for hypothyroidism - Allopurinol for gout prevention - Atenolol for hypertension - Celebrex for joint aches and pains - Furosemide (Flucemide) for ankle swelling - Pantoprazole for reflux - Tylenol as needed - Vitamin D Problem List - Hypothyroidism - Hyperuricemia with gout - Hypertension - Peripheral edema - Gastroesophageal reflux disease - Constipation - Arthralgia - Xerostomia - Preventative care: Tetanus vaccine was given today patient is to get Prevnar 20 from pharmacy in couple of weeks Plan - Labs: Will obtain blood tests today to check thyroid function and vitamin B12 levels. - Medications: Discontinue hydrochlorothiazide due to low blood pressure. The patient will continue her current regimen of atenolol, allopurinol, Celebrex, furosemide, pantoprazole, levothyroxine, and Tylenol as needed. - Immunizations: Administered a tetanus vaccine today. The patient was advised to get the Prevnar 20 pneumonia vaccine from a pharmacy. She has an appointment for her flu and COVID vaccines next week. - Follow-up: The patient is scheduled to follow up in four months. - continue other medications - labs to be done today Review of Systems - General: No fever no chills - Neurological: No headaches no dizziness - Ear nose throat: No sore throat no hearing difficulty no ear pain - Cardiovascular: No syncope, no chest pain, no palpitations - Gastrointestinal: No nausea vomiting or diarrhea - Endocrine: No polyuria polydipsia no heat intolerance - Genitourinary: No dysuria , no blood in urine Physical Exam General: No acute distress HEENT: Dry mouth noted, especially in the morning and at night Neck: Supple Respiratory system: Able to talk in full sentences, no audible wheeze Cardiovascular: S1-S2 regular in rate and rhythm, blood pressure 108/70 Gastrointestinal: No pain, Extremities: No new findings, no pitting edema 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 Brother Hypertension Social History Housing: House Alcohol intake: current Alcohol intake frequency: holidays/special occasions only Patient Tobacco Use Status: Never used Tobacco e-Cigarette/Vaping Use: Never Used service: No Current occupational status: employed Cognitive needs: No Hearing needs: No Vision needs: Yes Female Reproductive History Menstrual Age of Menarche: 9 Questionnaire Thrive Questionnaire Date Thrive assessed: 02/24/24 I am a: Patient What is your living situation today?: I have a steady place to live Within the past 12 months, did the food you bought not last and you didn't have the money to get more?: Never true Within the past 12 months, did you worry whether your food would run out before you got money to buy more?: Never true Do you have trouble paying for medicines?: No Do you have trouble getting transportation to medical appointments?: No Do you have trouble paying your heating and electricity bill?: No Do you have trouble taking care of your child, family member or friend?: No Do you have trouble with day-to-day activities such as bathing, preparing meals, shopping, managing finances, etc.?: No Are you currently unemployed and looking for a job?: No Are you interested in more education?: No Please select the resources that you would like help with: None Currently or been in a relationship where the following occur: No concerns reported THRIVE Score: 0 MOMO-7 AMB Questionnaire MOMO-7 Date MOMO - 7 assessed: 02/24/24 Trouble relaxin = Several days Source: Developed by Drs. Chance Ruiz, Tere Soria, Jeevan Márquez and colleagues, with an educational sami from [employer]. Physical exam (Primary Care) Vital Signs: Last Vital Signs Pulse 79 01/02/25 08:16 BP 108/70 01/02/25 08:16 Pulse Ox 100 01/02/25 08:16 BMI result Body Mass Index 37.7 Tobacco/Smoking Status: Tobacco use Status Tobacco use date assessed 05/22/24 01/02/25 08:18 Patient Tobacco Use Status Never used Tobacco 01/02/25 08:18 e-Cigarette/Vaping Use Never Used 01/02/25 08:18 Thrive Assessment: Date of Thrive Assessment Date Thrive assessed 02/24/24 01/02/25 08:18 Currently or been in a relationship where the following occur: No concerns reported Immunizations Boostrix Tdap 2.5 Lf unit-8 mcg-5 Lf/0.5 mL intramuscular syringe Performing Provider: Isabella Blount MD Performing Location: [facility] Administered by: Cruz Smyth CMA on 01/02/25 08:49 Dose Route Admin Location Dispensed Lot Number Expiration Date [place] [employer] Signal [employer] Switch Operator 0.5 mL IM Left Deltoid 0.5 mL [id number] 12/14/26 [id number] Datappraise Total Dispensed Waste 0.5 mL 0 % VIS Given Date VIS Provided VIS Publication Date 01/02/25 Single Vaccine 20 Eligibility Eligibility Date Funding Source Not [facility] Eligible 01/02/25 Private Coding Level of Care Code Est Pt Level 4 (01079) Diagnoses Hypertension, essential I10 Other specified hypothyroidism E03.8 CKD stage 3a, GFR 45-59 ml/min N18.31 Vitamin B12 deficiency E53.8 Chronic GERD K21.9 Assessment & Plan Assessment & Plan (1) Hypertension, essential: Code(s): I10 - Essential (primary) hypertension Category: Medical (2) Other specified hypothyroidism: Code(s): E03.8 - Other specified hypothyroidism Category: Medical (3) CKD stage 3a, GFR 45-59 ml/min: Code(s): N18.31 - Chronic kidney disease, stage 3a Category: Medical (4) Vitamin B12 deficiency: Code(s): E53.8 - Deficiency of other specified B group vitamins Category: Medical (5) Chronic GERD: Code(s): K21.9 - Gastro-esophageal reflux disease without esophagitis Category: Medical Plan Hypothyroidism: - Thyroid medication was adjusted in September. - The patient is currently taking levothyroxine 88 mcg. Hyperuricemia and Gout: - A lab test in October revealed a very high uric acid level. - She is taking allopurinol to prevent gout inflammation. Hypertension: - Her blood pressure is currently low at 108/70 mmHg. - The patient denies any dizziness or lightheadedness. - She takes atenolol for blood pressure. I am stopping hydrochlorothiazide 12.5 mg Xerostomia: - The patient has been experiencing dry mouth for the last four to five weeks. - It occurs in the morning and throughout the night, prompting her to keep a glass of water at her bedside. - She uses cough drops or gum to manage symptoms during the day. - The symptom is reportedly not bothersome to her. Constipation: - The patient reports occasional constipation. - She manages this by drinking half a glass of prune juice every other day, which she states resolves the issue. Medications: - Levothyroxine 88 mcg for hypothyroidism - Allopurinol for gout prevention - Atenolol for hypertension - Celebrex for joint aches and pains - Furosemide (Flucemide) for ankle swelling - Pantoprazole for reflux - Tylenol as needed - Vitamin D Problem List - Hypothyroidism - Hyperuricemia with gout - Hypertension - Peripheral edema - Gastroesophageal reflux disease - Constipation - Arthralgia - Xerostomia - Preventative care: Tetanus vaccine was given today patient is to get Prevnar 20 from pharmacy in couple of weeks Plan - Labs: Will obtain blood tests today to check thyroid function and vitamin B12 levels. - Medications: Discontinue hydrochlorothiazide due to low blood pressure. The patient will continue her current regimen of atenolol, allopurinol, Celebrex, furosemide, pantoprazole, levothyroxine, and Tylenol as needed. - Immunizations: Administered a tetanus vaccine today. The patient was advised to get the Prevnar 20 pneumonia vaccine from a pharmacy. She has an appointment for her flu and COVID vaccines next week. - Follow-up: The patient is scheduled to follow up in four months. - continue other medications - labs to be done today - patient is doing well and has lost a lot of weight Orders: Orders Complete Blood Count Auto Diff Today E03.8 - Other specified hypothyroidism, E53.8 - Deficiency of other specified B group vitamins, I10 - Essential (primary) hypertension, K21.9 - Gastro-esophageal reflux disease without esophagitis, N18.31 - Chronic kidney disease, stage 3a Comprehensive Met. Panel Today E03.8 - Other specified hypothyroidism, E53.8 - Deficiency of other specified B group vitamins, I10 - Essential (primary) hypertension, K21.9 - Gastro-esophageal reflux disease without esophagitis, N18.31 - Chronic kidney disease, stage 3a Vitamin B12 Today E53.8 - Deficiency of other specified B group vitamins TDaP Immunization Today Z23 - Encounter for immunization TSH reflex Free T4 Today E03.8 - Other specified hypothyroidism, E53.8 - Deficiency of other specified B group vitamins, I10 - Essential (primary) hypertension, K21.9 - Gastro-esophageal reflux disease without esophagitis, N18.31 - Chronic kidney disease, stage 3a Uric Acid Today E03.8 - Other specified hypothyroidism, E53.8 - Deficiency of other specified B group vitamins, I10 - Essential (primary) hypertension, K21.9 - Gastro-esophageal reflux disease without esophagitis, N18.31 - Chronic kidney disease, stage 3a Medications: Discontinued hydrochlorothiazide Discontinued Reason: Doctor's Order 12.5 mg PO DAILY 90 days 90 caps 1RF
[2025-01-02 08:16] VITALS: BP 108/70; PULSE 79; O2SAT 100; BMI 37.7
== END 2025-01-02 08:48 | disposition home or self-care (01) ==
LOC: HO.HMCC 08:12
PROVIDERS: PCP Internal Medicine; Visit Provider Internal Medicine
DX: I10 Essential (primary) hypertension (principal); E03.8 Other specified hypothyroidism; N18.31 Chronic kidney disease, stage 3a; E53.8 Deficiency of other specified B group vitamins; K21.9 Gastro-esophageal reflux disease without esophagitis; Z23 Encounter for immunization

== ENCOUNTER 2025-01-29 08:19 | Outpatient (AMB) | payer BC, SELFPAY ==
--- NOTE | 2025-01-29 09:37 | MHC.PC.OV ---
Intake Visit Reasons: hypokalemia-ED f/up Allergies No Known Allergies Allergy (Verified 01/02/25 08:16) Medication List - Last Reconciled 01/29/25 by Isabella Blount MD acetaminophen ER (Tylenol Arthritis Pain) 650 mg PO Q12H PRN allopurinol 100 mg PO DAILY atenolol 25 mg PO DAILY cholecalciferol (vitamin D3) 25 mcg PO DAILY levothyroxine (Synthroid) 88 mcg PO DAILY pantoprazole 40 mg PO DAILY 90 days Tobacco use date assessed: 05/22/24 Dental Screening Dental Screen Date: 05/22/24 HPI hypokalemia-ED f/up HPI Details Patient had labs mid of December. Her potassium came back at 2.2 with cr 1.46 she was directed to emergency room. Patient went to [facility] where she got potassium supplement and was discharged on two days of oral potassium as well. Her medication were changed ,diuretics were held. Patient was taking them for ankle swelling , atenolol 25 mg to be continued. She need an updated labs to make sure her potassium is with in a normal limit now and her Cr has gone back to normal. She offers no complain and is feeling fine. We will book her appointment with the nurse navigator this coming Tuesday so we can check her blood pressure as well. [facility] Medical History Morbid obesity due to excess calories Polyneuropathy Hypertension, essential Chronic GERD COVID-19 Surgical History No pertinent past surgical history Family History Father Hypertension Mother No problems noted. Brother Hypertension Social History Housing: House Alcohol intake: current Alcohol intake frequency: holidays/special occasions only Patient Tobacco Use Status: Never used Tobacco e-Cigarette/Vaping Use: Never Used service: No Current occupational status: employed Cognitive needs: No Hearing needs: No Vision needs: Yes Female Reproductive History Menstrual Age of Menarche: 9 Questionnaire Thrive Questionnaire Date Thrive assessed: 02/24/24 I am a: Patient What is your living situation today?: I have a steady place to live Within the past 12 months, did the food you bought not last and you didn't have the money to get more?: Never true Within the past 12 months, did you worry whether your food would run out before you got money to buy more?: Never true Do you have trouble paying for medicines?: No Do you have trouble getting transportation to medical appointments?: No Do you have trouble paying your heating and electricity bill?: No Do you have trouble taking care of your child, family member or friend?: No Do you have trouble with day-to-day activities such as bathing, preparing meals, shopping, managing finances, etc.?: No Are you currently unemployed and looking for a job?: No Are you interested in more education?: No Please select the resources that you would like help with: None Currently or been in a relationship where the following occur: No concerns reported THRIVE Score: 0 MOMO-7 AMB Questionnaire MOMO-7 Date MOMO - 7 assessed: 02/24/24 Source: Developed by Drs. Chance Ruiz, Tere Soria, Jeevan Márquez and colleagues, with an educational sami from [employer]. Review of Systems Const Denies chills and Denies fever(s) ENT Denies epistaxis and Denies nasal discharge Card Denies chest pain Resp Denies chest congestion, Denies cough and Denies hemoptysis GI Denies diarrhea and Denies nausea Skin/Breast Denies rash Neuro Reports no additional complaints Psych Reports no additional complaints Endo Reports no additional complaints Physical exam (Primary Care) Tobacco/Smoking Status: Tobacco use Status Tobacco use date assessed 05/22/24 01/29/25 09:38 Patient Tobacco Use Status Never used Tobacco 01/29/25 09:38 e-Cigarette/Vaping Use Never Used 01/29/25 09:38 Thrive Assessment: Date of Thrive Assessment Date Thrive assessed 02/24/24 01/29/25 09:38 Currently or been in a relationship where the following occur: No concerns reported Telehealth Telehealth Telehealth Platform: [facility] [place] Location of provider rendering services: practice address Location of patient: address on file Patient Identification confirmed using: Name, : Yes Telehealth method: video Patient verbally consented to treatment: Yes Patient verbally consented to billing insurance company: Yes Patient informed of any privacy concerns related to visit: Yes Minutes spent on Phone/Video with Pt.: 13 Coding Level of Care Code Tele Est Pt Level 3 (31013) Diagnoses Hypokalemia E87.6 CKD stage 3a, GFR 45-59 ml/min N18.31 Assessment & Plan Assessment & Plan (1) Hypokalemia: Code(s): E87.6 - Hypokalemia Category: Medical (2) CKD stage 3a, GFR 45-59 ml/min: Code(s): N18.31 - Chronic kidney disease, stage 3a Category: Medical Plan Patient had labs mid of December. Her potassium came back at 2.2 with cr 1.46 she was directed to emergency room. Patient went to [facility] where she got potassium supplement and was discharged on two days of oral potassium as well. Her medication were changed ,diuretics were held. Patient was taking them for ankle swelling , atenolol 25 mg to be continued. She need an updated labs to make sure her potassium is with in a normal limit now and her Cr has gone back to normal. She offers no complain and is feeling fine. We will book her appointment with the nurse navigator this coming Tuesday so we can check her blood pressure as well. Orders: Orders Basic Metabolic Panel Today E87.6 - Hypokalemia, R74.8 - Abnormal levels of other serum enzymes Medications: Refilled atenolol 25 mg PO DAILY 90 tabs 0RF
== END 2025-01-29 10:09 | disposition home or self-care (01) ==
LOC: HO.HMCC 08:19
PROVIDERS: PCP Internal Medicine; Visit Provider Internal Medicine
DX: E87.6 Hypokalemia (principal); N18.31 Chronic kidney disease, stage 3a

== ENCOUNTER 2025-02-06 08:19 | Outpatient (REF) | payer BC, SELFPAY ==
--- OUTSIDE RECORDS SUMMARY | 2025-02-06 08:30 | XMS_ITS | Clinical Summary ---
Author Organization [facility] ity Address [address] [place] [address] Care Team Providers Care Sustainability Manager Name Role Phone Unavailable Primary Care Provider [...] Documents on File Type Date Recorded Patient Relay Associate Expl anation Health Care Decision (hx) 02/05/2020 AD SHERYL DIRECTIVE
[2025-02-06 11:24] LABS: Anion Gap 10 (12-20); Blood Urea Nitrogen 15 mg/dL (9-16); Calcium 9.5 mg/dL (8.4-10.2); Carbon Dioxide 26 mmol/L (22-29); Chloride 108 mmol/L (96-108); Estimated Glomerular Filt Rate > 60; Potassium 3.8 mmol/L (3.3-5.1); Sodium 140 mmol/L (135-145)
[2025-02-06 11:31] LABS: Vitamin B12 318 pg/mL (200-900)
== END 2025-02-06 08:20 | disposition home or self-care (01) ==
LOC: HO.HMGCLDS 08:19
PROVIDERS: PCP Internal Medicine; Visit Provider Internal Medicine
DX: I10 Essential (primary) hypertension (principal); E66.01 Morbid (severe) obesity due to excess calories; E03.8 Other specified hypothyroidism; E87.6 Hypokalemia; R74.8 Abnormal levels of other serum enzymes
CPT/HCPCS: 36415; 80048; 82306; 82607; 84443